=== PATIENT | female | born 1980 | race Hispanic/Latino ===

== ENCOUNTER 2019-02-26 01:29 | Emergency (ER) | payer BC ==
[~2019-02-26] VITALS: Ht 157.5 cm; Wt 140.6 kg
[~2019-02-26 01:29] MED LIST: ATIVAN1 MG PO; CELEXA40 MG PO; CLONAZEPAM1 MG PO; LEVOFLOXACIN500 MG PO; [UNRECOGNIZED DRUG - OTHER]
--- OUTSIDE RECORDS SUMMARY | 2019-02-26 01:33 | XMS REPORT | Clinical Summary ---
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 Last Filed Vital Signs Not on file Plan of Treatment Not on file Results Not on fileafter 02/25/2018
--- OUTSIDE RECORDS SUMMARY | 2019-02-26 01:33 | XMS REPORT ---
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 Allergies, Adverse Reactions, Alerts This patient has no known allergies or adverse reactions. Medications This patient has no known medications. Results Test Description Test Time Test Comments Text Results Atomic Results Result Comments CT CHEST W [place] [address] Patient Name: DYLLAN KLEIN MR #: [id number] : 1980 Age/Sex: 37/F Req #: [id number] [facility] Physician: LEYDA MCCOY MD Ordered by: NAVJOT RANGEL MD Report #: [id number] Location: MED/SURG Room/Bed: [facility] Procedure: [id number] CT/CT CHEST W Exam Date: 07/11/17 Exam Time: 1640 REPORT STATUS: Signed EXAM: CT Chest, Abdomen and Pelvis WITH contrast INDICATION: Right upper lobe lesion. Infiltrate. Pain. COMPARISON: CT abdomen dated 03/03/2017. TECHNIQUE: Chest, abdomen and pelvis were scanned utilizing a multidetector helical scanner from the lung apex to the pubic symphysis before and after administration of IV contrast. Coronal and sagittal reformations were obtained. Routine protocol was performed. Scan was performed when during portal venous phase. IV CONTRAST: 100 cc Isovue 370. ORAL CONTRAST: Water RADIATION DOSE: Total DLP: 1012.08 mGy*cm Estimated effective dose: (DLP x 0.015 x size factor) mSv COMPLICATIONS: None FINDINGS: LINES and TUBES: None. Gastric lap band appears in adequate position. Connecting tubing and subcutaneous port. Intact. LUNGS AND AIRWAYS: Irregular patchy consolidation with air bronchograms in the right upper lobe measuring 3.5 cm in maximal dimension on image 101. Irregular patchy consolidation with air bronchograms in the right upper lobe laterally measures 2.2 cm on coronal image 115. Patchy consolidation in the right apex measure 3.2 cm on coronal image 118. Irregular patchy consolidation in the super segment of the right lower lobe. 5 mm calcified nodule in the right lower lobe on coronal image 89. Bilateral dependent atelectasis. PLEURA: The pleural spaces are clear. HEART AND MEDIASTINUM: The thyroid gland is normal. Mild mediastinal lipomatosis. No mediastinal, hilar or axillary lymphadenopathy. The heart is normal in size.. There is no pericardial effusion. HEPATOBILIARY: Hepatomegaly. Diffuse hepatic steatosis. No focal hepatic lesions. No biliary ductal dilation. GALLBLADDER: Surgically absent. SPLEEN: The spleen is enlarged measuring 15.0 cm in craniocaudal dimension. PANCREAS: No focal masses or ductal dilatation. ADRENALS: No adrenal nodules KIDNEYS/URETERS: Kidneys enhance symmetrically. No hydronephrosis. No cystic or solid mass lesions. No stones. GI TRACT: No abnormal distention, wall thickening, or evidence of bowel obstruction. Appendix is normal. PELVIC OR ROSITA/BLADDER: 4.5 cm oval low-attenuation lesion in the left adnexa previously 4.1 cm possibly a paraovarian cyst. Mildly prominent external iliac lymph nodes the largest on the left measuring 1.1 cm in short axis, nonspecific. LYMPH NODES: No lymphadenopathy. VESSELS: Unremarkable. PERITONEUM / RETROPERITONEUM: No free air or fluid. BONES: Unremarkable. SOFT TISSUES: Unremarkable. IMPRESSION: 1. Multifocal right upper lobe patchy consolidation with air bronchograms suggestive of infectious etiology/pneumonia in the proper and lateral views chest x-ray in 6-8 weeks after treatment to document resolution. 1. 5 mm noncalcified nodule in the right lower lobe is nonspecific. History of chronic smoking, consider follow-up CT chest nodule protocol in 6 months. Clinical setting. Recommend follow-up chest PA. 2. Hepatomegaly and hepatic steatosis. 3. Splenomegaly. Signed by: Dr. Rigo Marmolejo M.D. on 07/11/2017 5:59 PM Dictated By: MIKE MARMOLEJO MD, MD 58 Transcribed By: AGNES on 07/11/171758 COPY TO: NAVJOT RANGEL MD CT ABDOMEN/PELVIS W [place] [address] Patient Name: DYLLAN KLEIN MR #: [id number] : 1980 Age/Sex: 37/F Req #: [id number] Adm Physician: LEYDA MCCOY MD Ordered by: SHIRAZ ANSARI MD Report #: [id number] Location: [place] [address] Room/Bed: [facility] Procedure: [id number] CT/CT ABDOMEN/PELVIS W Exam Date: 07/11/17 Exam Time: 1640 REPORT STATUS: Signed EXAM: CT Chest, Abdomen and Pelvis WITH contrast INDICATION: Right upper lobe lesion. Infiltrate. Pain. COMPARISON: CT abdomen dated 03/03/2017. TECHNIQUE: Chest, abdomen and pelvis were scanned utilizing a multidetector helical scanner from the lung apex to the pubic symphysis before and after administration of IV contrast. Coronal and sagittal reformations were obtained. Routine protocol was performed. Scan was performed when during portal venous phase. IV CONTRAST: 100 cc Isovue 370. ORAL CONTRAST: Water RADIATION DOSE: Total DLP: 1012.08 mGy*cm Estimated effective dose: (DLP x 0.015 x size factor) mSv COMPLICATIONS: None FINDINGS: LINES and TUBES: None. Gastric lap band appears in adequate position. Connecting tubing and subcutaneous port. Intact. LUNGS AND AIRWAYS: Irregular patchy consolidation with air bronchograms in the right upper lobe measuring 3.5 cm in maximal dimension on image 101. Irregular patchy consolidation with air bronchograms in the right upper lobe laterally measures 2.2 cm on coronal image 115. Patchy consolidation in the right apex measure 3.2 cm on coronal image 118. Irregular patchy consolidation in the super segment of the right lower lobe. 5 mm calcified nodule in the right lower lobe on coronal image 89. Bilateral dependent atelectasis. PLEURA: The pleural spaces are clear. HEART AND MEDIASTINUM: The thyroid gland is normal. Mild mediastinal lipomatosis. No mediastinal, hilar or axillary lymphadenopathy. The heart is normal in size.. There is no pericardial effusion. HEPATOBILIARY: Hepatomegaly. Diffuse hepatic steatosis. No focal hepatic lesions. No biliary ductal dilation. GALLBLADDER: Surgically absent. SPLEEN: The spleen is enlarged measuring 15.0 cm in craniocaudal dimension. PANCREAS: No focal masses or ductal dilatation. ADRENALS: No adrenal nodules KIDNEYS/URETERS: Kidneys enhance symmetrically. No hydronephrosis. No cystic or solid mass lesions. No stones. GI TRACT: No abnormal distention, wall thickening, or evidence of bowel obstruction. Appendix is normal. P ELVIC ORGANS/BLADDER: 4.5 cm oval low-attenuation lesion in the left adnexa previously 4.1 cm possibly a paraovarian cyst. Mildly prominent external iliac lymph nodes the largest on the left measuring 1.1 cm in short axis, nonspecific. LYMPH NODES: No lymphadenopathy. VESSELS: Unremarkable. PERITONEUM / RETROPERITONEUM: No free air or fluid. BONES: Unremarkable. SOFT TISSUES: Unremarkable. IMPRESSION: 1. Multifocal right upper lobe patchy consolidation with air bronchograms suggestive of infectious etiology/pneumonia in the proper and lateral views chest x-ray in 6-8 weeks after treatment to document resolution. 1. 5 mm noncalcified nodule in the right lower lobe is nonspecific. History of chronic smoking, consider follow-up CT chest nodule protocol in 6 months. Clinical setting. Recommend follow-up chest PA. 2. Hepatomegaly and hepatic steatosis. 3. Splenomegaly. Signed by: Dr. Rigo Marmolejo M.D. on 07/11/2017 5:59 PM Dictated By: MIKE MARMOLEJO MD, MD 58 COPY TO: SHIRAZ ANSARI MD CHEST 2 VIEWS [place] [address] Patient Name: DYLLAN KLEIN MR #: [id number] : 1980 Age/Sex: 37/F Req #: [id number] Adm Physician: Ordered by: ORALIA LEGER MD Report #: [id number] Location: ER Room/Bed: Procedure: [id number] DX/CHEST 2 VIEWS Exam Date: 07/10/17 Exam Time: 1230 REPORT STATUS: Signed PROCEDURE: X-RAY CHEST, TWO VIEWS COMPARISON: None. INDICATIONS: PNEUMONIA, WHEEZING FINDINGS: Lungs are well-inflated. Patchy suprahilar/right upper lobe consolidation. No pleural effusion or pneumothorax. Cardiomediastinal contour and pulmonary vasculature are within normal limits. No acute osseous abnormality. Gastric band apparatus partially visualized. CONCLUSION: Right upper lobe/suprahilar airspace disease compatible with pneumonia. Followup chest radiograph in 6-8 weeks is suggested after treatment to document resolution. Dictated by: Jorge Rojas M.D. on 07/10/2017 at 12:57 Electronically approved by: Jorge Rojas M.D. on 07/10/2017 at 12:57 Dictated By: JORGE ROJAS MD [id number] Transcribed By: BRIGETTE on 07/10/17 1257 COPY TO: ORALIA LEGER MD
[2019-02-26] MEDS ORDERED: TETANUS/DIPHTHERIA TOX ADULT 0.5 ML SYR IM ONE (01:45)
--- NOTE | 2019-02-26 02:09 | Diagnostic Imaging Report ---
LEFT THUMB - 3 Images HISTORY: Status post knee right, eval for foreign body COMPARISON: None available. FINDINGS: Bones: No acute displaced fracture. No aggressive osseous lesion. Joints: Osseous alignment is within normal limits and the joint spaces are well-maintained. Soft tissues: No radiopaque foreign body. IMPRESSION: No acute radiographic abnormality. Signed by: Dr. Papa Schmidt D.O., M.M.M. on 02/26/2019 2:06 AM
[2019-02-26 03:44] VITALS: BP 117/67
== END 2019-02-26 03:55 | disposition home or self-care (01) ==
LOC: ER 01:29
DX: S60.372A Other superficial bite of left thumb, initial encounter (principal); W59.11XA Bitten by nonvenomous snake, initial encounter; Y92.008 Other place in unspecified non-institutional (private) residence as the place of occurrence of the external cause; F41.9 Anxiety disorder, unspecified; Z98.84 Bariatric surgery status
CPT/HCPCS: 90471; 90714; 99283

== ENCOUNTER 2019-12-03 03:43 | Inpatient (IN) | payer BC, OTHER ==
[~2019-12-03] VITALS: Ht 157.5 cm; Wt 134.3 kg
[2019-12-03] MEDS ORDERED: KETOROLAC TROMETHAMINE 30 MG/ML VIAL IV STA (04:44)
[2019-12-03] MEDS ORDERED: CEFEPIME HCL 2 GM VIAL IV SCH (04:45)
[2019-12-03] MEDS ORDERED: CIPROFLOXACIN 400 MG/D5W 200ML 200 ML IV ONE (04:48)
[2019-12-03] MEDS ORDERED: PIPER-TAZ 3.375 GM 50 ML ONE (04:48)
[2019-12-03] MEDS ORDERED: KETOROLAC TROMETHAMINE 30 MG/ML VIAL ONE (04:48)
[2019-12-03] MEDS ORDERED: CEFEPIME 1GM/NS 0.9% 50 ML 100 ML IV ONE (04:50)
[2019-12-03] MEDS: CIPROFLOXACIN 400 MG/D5W 200ML 200 ML IV SCH ×2 (05:05→17:04)
[2019-12-03] MEDS ORDERED: ONDANSETRON HCL INJ 2MG/ML 2ML 2 MG/ML VIAL IV STA (05:21)
[2019-12-03] MEDS ORDERED: MORPHINE SULFATE 2 MG/ML SYR 1ML IV STA (05:21)
[2019-12-03] MEDS ORDERED: MORPHINE SULFATE INJ 4 MG/ML INJ 1ML ONE ×2 (05:29→07:00)
--- NOTE | 2019-12-03 06:14 | Diagnostic Imaging Report ---
History:Right ear infection. Comparison studies:None Technique: Axial, coronal and sagittal images through the temporal bones. Dose modulation, iterative reconstruction, and/or weight based adjustment of the mA/kV was utilized to reduce the radiation dose to as low as reasonably achievable. Intravenous contrast: None Findings: Right: External auditory canal: Extensive soft tissue thickening effacing the right external auditory canal no osseous erosive changes. Tympanic membrane: Not well visualized. Middle ear and mastoid cavities: Near complete opacification. The Prussack's space is opacified, scutum is intact. Questionable focal dehiscence of medial aspect of tegmen tympani. Mastoid air cells: Partial opacification. Tegmen mastoideum is intact. Ossicles: The malleus, incus are grossly intact. Stapes is not well visualized. Cochlea, vestibule, internal acoustic canals: Grossly intact. Semicircular canals: Focal dehisence of superior semicircular canal (image 88, series 300). Endolymphatic ducts: Normal in size. No dilated. Petrous apices: Unremarkable, not aerated. Facial canals: Focal dehiscent of the facial canal in the tympanic segment (image 62, series 301) at the junction of the distal labyrinthine segment and proximal tympanic segment (in the region of the anterior genu). Left: External auditory canal: Clear and patent Tympanic membrane: Barely visualized and unremarkable. Middle ear and mastoid cavities: Clear. Mastoid air cells: Clear Ossicles: The malleus, incus and stapes are grossly intact. Cochlea, vestibule, internal acoustic canals: Grossly intact. Semicircular canals: Grossly intact. Not dehiscent. Endolymphatic ducts: Normal in size. No dilated. Petrous apices: Unremarkable, not aerated. Facial canals: No abnormalities in the labyrinthine, tympanic or mastoid segments of the facial nerve,. IMPRESSION: Right temporal bone: 1. Marked right otitis externa, otitis media and mastoiditis. 2. Questionable focal dehiscence of the medial aspect of the tegmen tympani. 3. 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 Left temporal bone: No abnormality. Signed by: Dr. Lila Duvall M.D. on 12/03/2019 6:10 AM
[2019-12-03] MEDS ORDERED: MORPHINE SULFATE INJ 4 MG/ML INJ 1ML IV STA (06:24)
[2019-12-03] MEDS ORDERED: SODIUM CHLORIDE FLUSH 10 ML SYR INJ PRN (07:00)
[2019-12-03] MEDS ORDERED: ONDANSETRON HCL INJ 2MG/ML 2ML 2 MG/ML VIAL IV PRN ×2 (07:00→11:00)
[2019-12-03 08:57] VITALS: BP 128/84
[2019-12-03] MEDS ORDERED: HUMULIN R100 UNIT/2 (08:57)
[2019-12-03] MEDS ORDERED: HUMULIN N100 UNITS/ SQ (08:57)
[2019-12-03] MEDS ORDERED: HUMULIN R100 UNIT/2 SQ (08:57)
[2019-12-03] MEDS ORDERED: BENADRYL25 M1 PO (08:59)
[2019-12-03 09:00] VITALS: BP 128/84
[2019-12-03 09:05] VITALS: BP 128/84
[2019-12-03] MEDS: HYDROMORPHONE 1MG/1ML INJ IV PRN ×4 (09:16→21:35)
[2019-12-03] MEDS: CLONAZEPAM 1 MG TAB PO PRN ×2 (09:50→15:45)
[2019-12-03] MEDS: INSULIN REGULAR, HUMAN 100 UNIT/1 ML 3ML VIAL SQ SCH ×6 (09:50→16:26)
[2019-12-03] MEDS: NPH, HUMAN INSULIN ISOPHANE 100 UNIT/1 ML 3ML VIAL SQ SCH ×2 (09:50→21:06)
[2019-12-03] MEDS ORDERED: HYDRALAZINE HCL 20 MG/ML VIAL IV PRN (11:00)
[2019-12-03] MEDS ORDERED: MELATONIN 5 MG TABLET PO PRN (11:00)
[2019-12-03] MEDS ORDERED: ACETAMINOPHEN 325 MG TAB PO PRN (11:00)
[2019-12-03 11:05] VITALS: BP 151/76
[2019-12-03] MEDS: ONDANSETRON HCL INJ 2MG/ML 2ML 2 MG/ML VIAL IV PRN ×2 (15:00→18:27)
[2019-12-03 15:12] VITALS: BP 145/82
[2019-12-03] MEDS ORDERED: SODIUM CHLORIDE 0.9% 250ML 250 ML ONE (15:44)
[2019-12-03 20:00] VITALS: BP 133/88
[2019-12-03] MEDS: CITALOPRAM HYDROBROMIDE 20 MG TAB PO SCH (21:00)
--- NOTE | 2019-12-03 21:37 | Consultation ---
DATE OF CONSULTATION: Hospital Consultation HISTORY OF PRESENT ILLNESS: I was kindly asked to see this 39-year-old woman for evaluation of right-sided otitis externa. She presents with a 6-day history of progressive right-sided ear pain. She was treated by her oncologist with amoxicillin with no response to therapy. Prior to this episode, she has had no otologic history. However, she does use Q-Tips to clean her ear. She has a history of diabetes, which was out of control on presentation. She has noticed decreased hearing in the right ear. She reports pain which begins in the right temporal region down to the angle of the mandible on the right side. Her admission CT scan was reviewed and shows edema of the external auditory canal and extension into the middle ear and mastoid air cells. There is no bony erosion. 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 The patient has not received medications for her leukemia since 2018 and she took immunosuppressive medications for approximately 9 months after her bone marrow transplant. Her past medical history and past surgical is otherwise noncontributory. PHYSICAL EXAMINATION: The left pinna, left external auditory canal, and left tympanic membrane are normal. The right pinna has erythema within the conchal bowl of the pinna. There is edema and mucopus in the external auditory canal. The tympanic membrane cannot be visualized. The ear canal is more than 50% swollen shut from the edema. There is no postauricular pain, swelling, erythema, or tenderness. There is no palpable cervical adenopathy. Intranasal examination is unremarkable. Oral cavity examination shows mild candidiasis on the dorsum of the tongue. The posterior pharyngeal wall could not be seen and Ot[place]ick was inserted in the right external auditory canal. ASSESSMENT: 1. Right otitis externa with secondary mastoiditis. 2. Status post placement of Otowick in the right external auditory canal. PLAN: Addition of Ciprodex b.i.d. to the right ear. Thank you very much for this consultation. MD JAMIE Diaz/MODL /[id number]
[2019-12-04] VITALS (8 sets, daily range): BP systolic 115–128; BP diastolic 68–87
[2019-12-04] MEDS: HYDROMORPHONE 1MG/1ML INJ IV PRN ×3 (03:07→09:23)
[2019-12-04] MEDS: ONDANSETRON HCL INJ 2MG/ML 2ML 2 MG/ML VIAL IV PRN ×5 (03:07→21:59)
[2019-12-04] MEDS: CIPROFLOXACIN 400 MG/D5W 200ML 200 ML IV SCH ×2 (04:19→17:14)
[2019-12-04 05:49] LABS: BASOPHILS % 0.5 % (0.0-1.0); EOSINOPHILS # (AUTO) 0.3 (0.0-0.4); EOSINOPHILS % 3.6 % (0.0-6.0); HEMATOCRIT 37.4 % (34.2-44.1); HEMOGLOBIN 12.9 g/dL (12.0-16.0); LYMPHOCYTES # (AUTO) 1.2 (1.0-3.2); LYMPHOCYTES % 15.1 % (18.0-39.1); MEAN CORPUSCULAR HEMOGLOBIN 32.5 pg (28-32); MEAN CORPUSCULAR HGB CONC 34.5 g/dL (31-35); MEAN CORPUSCULAR VOLUME 94.2 fL (81-99); MONOCYTES # (AUTO) 0.5 (0.2-0.8); MONOCYTES % 5.9 % (4.4-11.3); NEUTROPHILS % 74.4 % (38.7-80.0); PLATELET COUNT 162 x10e3/uL (140-360); RED BLOOD COUNT 3.97 x10e6/uL (3.6-5.1); RED CELL DISTRIBUTION WIDTH 13.1 % (11.7-14.4)
[2019-12-04 06:12] LABS: ALBUMIN 3.4 g/dL (3.5-5.0); ALBUMIN/GLOBULIN RATIO 0.9 (0.8-2.0); CALCIUM 9.5 mg/dL (8.4-10.2); CREATININE, SERUM 1.04 mg/dL (0.57-1.11); MAGNESIUM 1.7 MG/DL (1.3-2.1)
[2019-12-04 06:32] LABS: THYROID STIMULATING HORMONE 2.735 uIU/mL (0.350-4.940)
[2019-12-04] MEDS: NPH, HUMAN INSULIN ISOPHANE 100 UNIT/1 ML 3ML VIAL SQ SCH ×2 (07:48→20:53)
[2019-12-04] MEDS: INSULIN REGULAR, HUMAN 100 UNIT/1 ML 3ML VIAL SQ SCH ×6 (07:49→17:14)
[2019-12-04] MEDS: CIPROFLOXACIN-DEXAMETHASONE (OTIC) 7.5 ML BOTTLE OT SCH ×2 (08:05→17:14)
[2019-12-04] MEDS: CLONAZEPAM 1 MG TAB PO PRN ×2 (08:05→20:29)
[2019-12-04] MEDS: MORPHINE SULFATE INJ 4 MG/ML INJ 1ML IV PRN ×3 (13:30→21:59)
[2019-12-04] MEDS: CITALOPRAM HYDROBROMIDE 20 MG TAB PO SCH (20:24)
[2019-12-05 00:13] VITALS: BP 121/64
[2019-12-05] MEDS: MORPHINE SULFATE INJ 4 MG/ML INJ 1ML IV PRN ×4 (03:25→16:00)
[2019-12-05] MEDS: ONDANSETRON HCL INJ 2MG/ML 2ML 2 MG/ML VIAL IV PRN ×2 (03:25→08:13)
[2019-12-05] MEDS: CIPROFLOXACIN 400 MG/D5W 200ML 200 ML IV SCH (03:48)
[2019-12-05 04:44] VITALS: BP 116/64
[2019-12-05 06:30] LABS: BASOPHILS # (AUTO) 0.1 (0.0-0.1); BASOPHILS % 0.7 % (0.0-1.0); EOSINOPHILS # (AUTO) 0.3 (0.0-0.4); EOSINOPHILS % 4.6 % (0.0-6.0); HEMATOCRIT 36.8 % (34.2-44.1); HEMOGLOBIN 12.2 g/dL (12.0-16.0); LYMPHOCYTES # (AUTO) 1.1 (1.0-3.2); MEAN CORPUSCULAR HEMOGLOBIN 31.6 pg (28-32); MEAN CORPUSCULAR HGB CONC 33.2 g/dL (31-35); MEAN CORPUSCULAR VOLUME 95.3 fL (81-99); MONOCYTES # (AUTO) 0.4 (0.2-0.8); NEUTROPHILS # (AUTO) 5.1 (2.1-6.9); PLATELET COUNT 164 x10e3/uL (140-360); RED BLOOD COUNT 3.86 x10e6/uL (3.6-5.1); RED CELL DISTRIBUTION WIDTH 13.2 % (11.7-14.4)
[2019-12-05 06:49] LABS: ANION GAP 9.1 mmol/L (8-16); BLOOD UREA NITROGEN 9 mg/dL (7-26); BUN/CREATININE RATIO 9 (6-25); CALCIUM 9.5 mg/dL (8.4-10.2); CARBON DIOXIDE 32 mmol/L (22-29); CHLORIDE 102 mmol/L (98-107); CREATININE, SERUM 0.96 mg/dL (0.57-1.11); EST GLOMERULAR FILTRATION RATE > 60 ML/MIN (60-); GLUCOSE 165 mg/dL (74-118); MAGNESIUM 1.8 MG/DL (1.3-2.1); POTASSIUM 4.1 mmol/L (3.5-5.1); SODIUM 139 mmol/L (136-145)
[2019-12-05] MEDS: INSULIN REGULAR, HUMAN 100 UNIT/1 ML 3ML VIAL SQ SCH ×4 (08:20→12:53)
[2019-12-05] MEDS: NPH, HUMAN INSULIN ISOPHANE 100 UNIT/1 ML 3ML VIAL SQ SCH (08:21)
[2019-12-05] MEDS: CIPROFLOXACIN-DEXAMETHASONE (OTIC) 7.5 ML BOTTLE OT SCH (08:22)
[2019-12-05 08:28] VITALS: BP 111/53
[2019-12-05 10:10] VITALS: BP 111/53
[2019-12-05] MEDS: CLONAZEPAM 1 MG TAB PO PRN (10:28)
[2019-12-05] MEDS ORDERED: TYLENOL WITH C1 EACH PO (10:42)
[2019-12-05] MEDS ORDERED: CIPRODEX OTIC7.5 ML OT (10:42)
[2019-12-05] MEDS ORDERED: CIPRO500 MG PO (10:42)
[2019-12-05 12:30] VITALS: BP 141/87
[2019-12-05 12:31] VITALS: BP 110/62
--- NOTE | 2019-12-06 00:50 | Discharge Summary ---
ADMISSION DIAGNOSES: Right ear otitis media externa and mastoiditis. DISCHARGE DIAGNOSES: Right ear otitis media externa and mastoiditis. HISTORY: Type 2 diabetes, anxiety, depression, and PTSD. SURGICAL HISTORY: None. FAMILY HISTORY: None. SOCIAL HISTORY: Noncontributory. HOSPITAL COURSE: A 39-year-old female admits with complaints of right ear pain and fullness for a week. She went to her oncologist, who treated her in the past for AML, who told her to come to the ER. On admission, she had a CT of the face that showed marked right otitis externa, otitis media, and mastoiditis. ENT was consulted. The patient was started on Cipro IV. Per ENT recommendation, the patient was also given Ciprodex b.i.d. drops and an ear wick was placed. Wound culture came back positive for Pseudomonas fluorescens/putida, which was susceptible to Cipro. She will discharge home on a week of Cipro drops and Cipro p.o. She will follow up with ENT at the end of that week. The patient understands discharge instructions and agrees to plan. Dictated by Marlena Barnett NP MD AMRITA Camacho/HERNAN /[id number]
== END 2019-12-05 16:15 | disposition home or self-care (01) | DRG 155 ==
LOC: FSED 03:43 → ERHOLD 06:53 → MED/SURG3 08:19
PROVIDERS: ADMIT Internal Medicine; ATTEND Internal Medicine
DX: H60.21 Malignant otitis externa, right ear (principal); H70.001 Acute mastoiditis without complications, right ear; Z68.43 Body mass index [BMI] 50.0-59.9, adult; B37.0 Candidal stomatitis; Z85.6 Personal history of leukemia; G47.33 Obstructive sleep apnea (adult) (pediatric); F41.9 Anxiety disorder, unspecified; Z88.8 Allergy status to other drugs, medicaments and biological substances; Z91.048 Other nonmedicinal substance allergy status; Z79.4 Long term (current) use of insulin; H60.11 Cellulitis of right external ear; Z83.3 Family history of diabetes mellitus; Z80.9 Family history of malignant neoplasm, unspecified; Z90.49 Acquired absence of other specified parts of digestive tract; L91.0 Hypertrophic scar; E66.01 Morbid (severe) obesity due to excess calories; F32.9 Major depressive disorder, single episode, unspecified; H66.91 Otitis media, unspecified, right ear; B96.5 Pseudomonas (aeruginosa) (mallei) (pseudomallei) as the cause of diseases classified elsewhere; F43.10 Post-traumatic stress disorder, unspecified
CPT/HCPCS: 36415; 70480; 80048; 80053; 81025; 82948; 83036; 83735; 84443; 85025; 87071; 87186; 87205; 94660; 96376; 99284; J0692; J1170; J1817; J1885; J2270; J2405; J2543; J7050

== ENCOUNTER 2020-04-18 06:22 | Emergency (ER) | payer MEDICARE ==
[~2020-04-18] VITALS: Ht 157.5 cm; Wt 134.3 kg
[~2020-04-18 06:22] MED LIST changes: +BENADRYL25 M1 PO; +CIPRO500 MG PO; +CIPRODEX OTIC7.5 ML OT; +HUMULIN N100 UNITS/ SQ; +HUMULIN R100 UNIT/2; +HUMULIN R100 UNIT/2 SQ; +TYLENOL WITH C1 EACH PO
--- OUTSIDE RECORDS SUMMARY | 2020-04-18 06:55 | XMS REPORT | Clinical Summary ---
Author Author Augusta Yarsani Organization Augusta Yarsani Address Unknown Phone Unavailable Care Team Providers Care Stock Chaser Name Role Phone Amando Monsivais MD PCP Allergies Comments Active Allergy Reactions Severity Noted Date Blisters Adhesive Tape-Silicones Dermatitis Medium 2016 Chlorhexidine Rash Low 03/29/2018 Tachycardia Pseudoephedrine Hcl Palpitations High 07/24/2017 Medications End Date Status Medication Sig Dispensed Refills Start Date Active clonAZEPAM (KlonoPIN) 1 Take 1 mg by 0 MG tablet mouth 2 (two) times a day. Active multivitamin (THERAGRAN) Take 1 tablet 0 tablet by mouth daily. Active lancets (ONETOUCH DELICA 1 Device 4 400 each 3 0 LANCETS) 30 gauge misc (four) times 8 a day. Active citalopram (CeleXA) 40 MG Take 40 mg by 0 tablet mouth daily. Active flash glucose scanning 1 Device 1 each 1 reader misc daily. 9 Active flash glucose sensor kit 1 Device 6 kit 3 0 every 14 9 (fourteen) days. Active QUEtiapine (SEROquel) 100 Take 1 tablet 2 3/201 MG tablet by mouth 9 nightly. Active valACYclovir (VALTREX) Take 1 tablet 90 tablet 3 1 500 MG tabletIndications: (500 mg 9 Status post allogeneic total) by bone marrow transplant mouth daily. (HCC) 09/06/2020 Active sulfamethoxazole-trimetho Take 1 tablet 36 tablet 1 prim (BACTRIM DS) 800-160 by mouth 3 0 mg per tablet (three) times a week for 180 days. Active cholecalciferol, vitamin Take 1 tablet 0 D3, (Vitamin D3) 125 mcg by mouth (5,000 unit) tablet daily. Active progesterone (PROMETRIUM) Take 200 mg 0 100 MG capsule by mouth daily. Active atorvastatin (LIPITOR) 40 Take 40 mg by 0 mg tablet mouth daily. Active insulin Inject 60 0 glargine-lixisenatide Units under (Soliqua 100/33) 100 the skin unit-33 mcg/mL insulin daily. pen 04/18/2019 voriconazole (VFEND) 200 Take 1 tablet 60 tablet 1 MG tablet (200 mg 8 total) by mouth every 12 (twelve) hours. 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 05/22/2019 Discontinued (Therapy comple kevan) linagliptin (TRADJENTA) 5 Take 1 tablet 90 tablet 3 mg tablet (5 mg total) 8 by mouth daily. 05/22/2019 Discontinued (Therapy comple kevan) dextran 70-hypromellose Administer 1 0 (ARTIFICIAL TEARS) drop to both 8 0.1-0.3 % drops eyes as needed (dry eyes). 05/22/2019 Discontinued (Therapy comple kevan) insulin lispro (HumaLOG) Inject 6 20 mL 1 1 100 unit/mL injection Units under 8 the skin 3 (three) times a day before meals. 05/22/2019 Discontinued (Therapy comple kevan) insulin NPH (HumuLIN-N) Inject 15 20 mL 1 100 unit/mL injection Units under 8 the skin 2 (two) times a day before meals. 03/24/2020 Discontinued (Therapy comple kevan) promethazine (PHENERGAN) Take 1 tablet 60 tablet 1 25 MG tablet (25 mg total) 8 by mouth every 4 (four) hours as needed for nausea or vomiting. 05/22/2019 Discontinued (Therapy comple kevan) pantoprazole (PROTONIX) TAKE 1 TABLET 60 tablet 0 40 MG EC tablet BY MOUTH 9 TWICE A DAY 05/22/2019 Discontinued (Therapy comple kevan) eltrombopag (PROMACTA) 50 Take 2 60 tablet 11 MG tablet tablets (100 9 mg total) by mouth daily. Administer on an empty stomach, 1 hour before or 2 hours after a meal. 04/29/2019 Discontinued (Reorder) VITAMIN D2 50,000 unit TAKE ONE 4 capsule 3 capsule CAPSULE BY 9 MOUTH ONE TIME PER WEEK 05/22/2019 Discontinued (Therapy comple kevan) MAGNESIUM, AMINO ACID TAKE 1 TABLET 150 tablet 3 CHELATE, 133 mg tablet BY MOUTH 5 9 (FIVE) TIMES A DAY. 05/22/2019 Discontinued (Reorder) valACYclovir (VALTREX) Take 1 tablet 90 tablet 3 0 500 MG tablet (500 mg 9 total) by mouth daily. 03/24/2020 Discontinued (Therapy comple kevan) ondansetron (ZOFRAN) 8 MG Take 1 tablet 28 tablet 3 tabletIndications: Acute (8 mg total) 9 myeloid leukemia in by mouth remission (HCC) every 8 (eight) hours as needed for nausea or vomiting. 03/10/2020 Discontinued (Dose adjustmen t) ergocalciferol (VITAMIN TAKE ONE 4 capsule 3 D2) 50,000 unit capsule CAPSULE BY 9 MOUTH ONE TIME PER WEEK 03/10/2020 Discontinued (Alternate ther apy) insulin NPH (HumuLIN-N) Inject 40 0 100 unit/mL injection Units under the skin 2 (two) times a day before meals. 09/01/2019 Discontinued (Alternate ther apy) insulin lispro (HumaLOG) Inject under 0 100 unit/mL injection the skin 3 (three) times a day before meals. Per sliding scale 08/08/2019 levoFLOXacin (LEVAQUIN) Take 1 tablet 7 tablet 0 500 MG tablet (500 mg 9 total) by mouth daily for 10 days. 09/01/2019 Discontinued (Reorder) insulin regular (HumuLIN Inject 15 0 R Regular U-100 Insuln) Units under 100 unit/mL injection the skin 3 (three) times a day before meals. SS:<150=0 units, 150-180=4 units, 181-200=6 units, 201-250=8 units, 251-300=10 units, 301-350=12 units, >351=14 units 03/10/2020 Discontinued (Alternate ther apy) insulin regular (HumuLIN Inject 15 20 mL 3 0 R Regular U-100 Insuln) Units under 0 100 unit/mL the skin 3 injectionIndications: (three) times Controlled type 2 a day before diabetes mellitus without meals. complication, without SS:<150=0 long-term current use of units, insulin (HCC) 150-180=4 units, 181-200=6 units, 201-250=8 units, 251-300=10 units, 301-350=12 units, >351=14 units 01/08/2020 Discontinued (Alternate ther apy) HUMALOG U-100 INSULIN 100 INJECT 15 10 mL 3 unit/mL injection UNITS UNDER 0 THE SKIN 3 (THREE) TIMES A DAY BEFORE MEALS 12/06/2019 amoxicillin-pot Take 1 tablet 20 tablet 0 11/26/19 2 clavulanate (Augmentin) by mouth 2 0 875-125 mg per (two) times a tabletIndications: Acute day for 10 serous otitis media, days. recurrence not specified, unspecified laterality Active Problems Problem Noted Date Need for hepatitis A vaccination 03/10/2020 Dysuria 07/28/2019 Iron overload due to repeated red blood cell transfus ions 07/28/2019 Acquired hypothyroidism 06/19/2019 Need for hepatitis A immunization 06/19/2019 Need for meningococcal vaccination 06/19/2019 Need for pneumococcal vaccination 05/22/2019 Need for polio vaccination 05/22/2019 Need for Tdap vaccination 04/03/2019 Need for hepatitis B vaccination 04/03/2019 Anxiety 04/03/2019 Need for Hib vaccination 04/03/2019 Exposure to hepatitis C 03/13/2019 Pre-procedure lab exam 10/09/2018 AML (acute myeloid leukemia) in remission 10/01/2018 Anxiety about health 10/01/2018 Pain at surgical site 10/01/2018 Diarrhea of presumed infectious origin 10/01/2018 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 Solumedrol 125mg x1, IVIG 1gm/kg x1, Prednisone 60mg daily. 07/15/18 platelets peaked at 73k, now 36 k. 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 05/20/18 MRI brain and face Negative 05/21/18 LP WBC 49, 90% lymphs, 6 mono ,2 plasma cells Glucose 94, Protein 80 Cryptoantigen negative. Flow negat harsha. BK PCR CMV PCR HSV PCR negative VZV PCR negative Enteroviru s negative PCR EBV PCR negative SERUM Toxo PCR negative. VDRL Fungal , bacterial Hypomagnesemia 04/22/2018 Hypovolemia 04/19/2018 Status post allogeneic bone marrow transplant 2017 Overview: Admitted: 03/26/18 Regimen: Bu/Cy/Cam Transplant: ( allo-MUD): 04/03/18. (rec eived 6.444VR67/kg) Engraftment date: 04/18/18 (Third consecu tive days of ANC> 500). Complications: Neutropenic fever: cultu res positive for streptococcus mitis ( will complete Roce[facility] x[facility]). Repeat cultures negative. Chest Xray neg. UA neg. Grade III mucos itis: resolved (Sizing Sprayer morphin). Grade II Nausea. resolving . GVHD: None CMV: negative PCP prophylaxis: Bactrim... Mon/Sun/Fri . CVC: Left subclavian tripple lumen (03/14 04/30 ). Discharge: 04/19/18 1. 05/02/18 PB STR 100% donor. 2. 07/03/18 BM 30-40% cellular, AML in remission. Flow negative Cytogenetics FISH AML Inv 16 negative. FISH MDS normal STR 100% donor 3. 2 PB STR 100% donor. 4. 2 BM 60% cellular, AML in felipe ssion Flow negative for AML. Cytogenetics 46 XYFISH AML normal FISH MDS normal BFG500% donor. 5. 3 CSF Protein 32, Glucose 68 , WBC 2, Flow negative. OP 24cm H2O, Cytology negative. 6. 04/03/19 BM 60% cellular, no AML Carlos w negative. Cytogenetics 46 XY FISH Inv16 and FISH MDS normal STR 100% don or. 01/08/2020 PB STR 96% mononuclear 100% g ranulocyte donor 03/24/2020 BM 50% cellular, no AML. Carlos w negative. Cytogenetics 46 XY FISH Inv 16 normal. FISH MDS normal STR 100 % donor. Infection due to Streptococcus mitis group 8 Abnormal stress test 02/15/2018 Overview: Added automatically from request for lorna wallace [id number] Acute cystitis without hematuria 01/02/2018 H/O total hysterectomy 12/27/2017 Overview: 11/16/17 Complex atypical endometrial hyperplasia 11/16/2017 Controlled type 2 diabetes mellitus without complicat ion, without long-term 10/21/2017 current use of insulin Complex endometrial hyperplasia 10/16/2017 Vitamin D deficiency 10/06/2017 FRANCI (acute kidney injury) 09/09/2017 Secondary diabetes mellitus 09/04/2017 Dyslipidemia 09/04/2017 Morbid obesity 08/01/2017 Thrombocytopenia 08/01/2017 AML (acute myeloblastic leukemia) 07/24/2017 Overview: 1. 07/2017 elevated WBC, severe anemia and thrombocytopenia 2. 07/25/17 BM 95% cellular, 33% blasts AMML with eosinophils flow:CD45, CD33, CD13, CD15, HLA-DR, CD38 (dim), C D14 (subset are negative), CD11b(subset are negative), CD11c, CD36, CD64, HLA-D R, CD123 (variable), CD34 (small subset), MPO. Cytogenetics inv1 6 with del 7q. 3. 07/25/17 WBC 66k. Hydrea and Cytara bine 1gm IV 4. 07/27/17 3+7 Megan 12/mgm2 + cytarabin e 100mg/m2 5. 08/31/17 BM 80-90% cellular, AML in r emission. Flow negative Cytogenetics FISH only, negative for -7 and inv16. 6. 08/31/17 HiDAC 3gm/m2 x 6 doses. 7. 2 HiDAC 3gm/m2 x6 doses. 8. 10/15/17 bacteremia, due to Strep sali v. 9. 11/16/17 Hysterectomy. 10 12/27/17 BM 30-70% cellular, AML in r emission. Flow negative Cytogenetics 46XX FISH INV 16 negative and monosomy 7 negative. NGS no mutations. 11. 01/15/18 HiDAC 1.5gm/m2 x 6 doses. Uterus disorder 08/13/2015 Overview: hyperplasia of uterus. Now with atypia 2017 Seizure disorder, focal motor 02/11/2010 Disease of thyroid gland 08/13/2009 Overview: Began replacement therapy Asthma 08/13/2009 Overview: 1. 2010, recurrent brochitis Seizures 08/13/2008 Overview: 1. Migraine variant. MRI negative 2008 . Alopecia areata 07/11/2007 Sleep apnea, obstructive 08/13/1999 Overview: CPAP, since 1999. Encounters Care Team Description Date Type Specialty Zack Arriaga MD Scholoff, Audrey C., NP Acute myeloid leukemia not having achiev ed remission (HCC) (Primary Dx); Status post allogeneic bone marrow transplant (HCC); 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ons; Need for hepatitis A vaccination; Need for pneumococcal vaccination 03/24/2020 Hospital Hematology and Onco logy Encounter Savannah Crawford NP 03/24/2020 Refill Hematology and Onco logy 03/24/2020 Travel Zack Arriaga MD Scholoff, Audrey C., NP Acute myeloid leukemia not having achiev ed remission (HCC) (Primary Dx); Status post allogeneic bone marrow transplant (HCC) 03/10/2020 Hospital Hematology and Onco logy Encounter 03/10/2020 Travel Zack Arriaga MD Scholoff, Audrey C., NP No Show 02/03/2020 Hospital Hematology and Onco logy Encounter Savannah Crawford NP 01/14/2020 Refill Hematology and Onco logy Zack Arriaga MD Scholoff, Audrey C., NP Acute myeloid leukemia not having achiev ed remission (HCC) (Primary Dx); Status post allogeneic bone marrow transplant (HCC); 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ons; Need for polio vaccination; Need for pneumococcal vaccination; Need for hepatitis B vaccination; AML (acute myeloid leukemia) in remission (HCC) 01/08/2020 Hospital Hematology and Onco logy Encounter 01/08/2020 Travel Haylee Stapleton MA 01/02/2020 Telephone Endocrinology Savannah Crawford NP 12/23/2019 Refill Hematology and Onco logy Savannah Crawford NP Acute serous otitis media, recurrence no t specified, unspecified laterality (Primary Dx) 11/26/2019 Refill Hematology and Onco logy Savannah Crawford NP 11/26/2019 Orders Only Hematology and Onco logSavannah Rodgers, HIRAL 10/27/2019 Refill Hematology and Onco logy Haylee Stapleton MA Uncontrolled type 2 diabetes mellitus wi th hyperglycemia (HCC) (Primary Dx); Hyperlipidemia associated with type 2 diabetes mellitus (HCC); Vitamin D deficiency 10/02/2019 Orders Only Endocrinology Zack Arriaga MD 09/12/2019 Refill Hematology and Onco logy Savannah Crawford, HIRAL 09/09/2019 Refill Hematology and Onco logy Zack Arriaga MD Scholoff, Audrey C., HIRAL Acute myeloid leukemia in remission (HCC ) (Primary Dx); Need for polio vaccination; Status post allogeneic bone marrow transplant (HCC); 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ons; Acute myeloid leukemia not having achieved remission (HCC); Need for Tdap vaccination; Need for pneumococcal vaccination; Controlled type 2 diabetes mellitus without complication, without long-term current use of insulin (HCC) 09/01/2019 [facility] Hematology and Onco logy Encounter Savannah Crawford NP 07/29/2019 Refill Hematology and Onco logy Zack Arriaga MD Scholoff, Audrey C., HIRAL Acute myeloid leukemia in remission (HCC ) (Primary Dx); Acute myeloid leukemia not having achieved remission (HCC); Status post allogeneic bone marrow transplant (HCC); Acquired hypothyroidism; Need for hepatitis A immunization; Need for meningococcal vaccination; Need for Hib vaccination; Dysuria; 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ons 07/28/2019 [facility] Hematology and Onco logy Encounter aZck Arriaga MD Scholoff, Audrey C., HIRAL Canceled (Department/Provider) 07/24/2019 [facility] Hematology and Onco logy Encounter Zack Arriaga MD Scholoff, Audrey C., HIRAL Acute myeloid leukemia not having achiev ed remission (HCC) (Primary Dx); Status post allogeneic bone marrow transplant (HCC); Need for Tdap vaccination; Need for polio vaccination; Need for pneumococcal vaccination; Insulin dependent diabetes mellitus (HCC) 06/19/2019 [facility] Hematology and Onco logy Encounter Ester Martinez NP 06/19/2019 Refill Endocrinology Zack Arriaga MD Scholoff, Audrey C., HIRAL Acute myeloid leukemia not having achiev ed remission (HCC) (Primary Dx); Status post allogeneic bone marrow transplant (HCC); Need for hepatitis B vaccination; Need for Hib vaccination; Need for vaccination for H flu type B 05/22/2019 Hospital Hematology and Onco logy Encounter Ryann Barlow MD Diarrhea 05/09/2019 Telephone Transplant Zack Arriaga MD Scholoff, Audrey C., NP Canceled (Patient) 05/05/2019 Hospital Hematology and Onco logy Encounter Zack Arriaga MD Scholoff, Audrey C., NP Canceled (Department/Provider) 05/01/2019 Hospital Hematology and Onco logy Encounter Savannah Crawford NP 04/29/2019 Refill Hematology and Onco logy after 04/18/2019 Immunizations Name Administration Dates Next Due FLUCELVAX QUAD PF 05/22/2019, 06/06/2018 Hepatitis A 03/24/2020, 07/28/2019 Hepatitis B 01/08/2020, 05/22/2019, Hib (PRP-T) 07/28/2019, 05/22/2019 IPV 01/08/2020, 09/01/2019, 02/2019 Meningococcal MCV4P 07/28/2019 Pneumococcal Conjugate 03/24/2020, 01/08/2020, , 06/19/2019 13-Valent Tdap 09/01/2019, 06/19/2019 Family History Medical History Relation Name Comments Depression Brother 39 Leukemia Cousin Diabetes Father 60 Heart disease Father 60 Kidney failure Father 60 Paget's disease of bone Father 60 Stroke Father 60 Deep vein thrombosis Maternal Grandfather Abnormal EKG Maternal Grandmother Breast cancer Maternal Grandmother Cancer Maternal Breast CA Grandmother Colon cancer Maternal Uncle Diabetes Mother 65 Hyperlipidemia Mother 65 Relation Name Status Comments Brother 39 Alive Cousin Father 60 Alive Maternal Grandfather Maternal Grandmother Maternal Uncle Mother 65 Alive Social History Date Tobacco Use Types Packs/Day Years Used Never Smoker Smokeless Tobacco: Never Used Drinks/Week oz/Week Comments Alcohol Use No Sex Assigned at Date Recorded Not on file Industry Job Start Date Occupation Not on file Not on file Not on file Travel End Travel History Travel Start No recent travel history available. Date Recorded COVID-19 Exposure Response 03/24/2020 9:16 AM CDT In the last month, have you been in contact with No / Unsure someone who was confirmed or suspected to have Coronavirus / COVID-19? Last Filed Vital Signs Reading Time Taken Comments Vital Sign 105/60 03/24/2020 12:31 PM CDT Blood Pressure 84 03/24/2020 12:31 PM CDT Pulse 37.1 C (98.7 F) 03/24/2020 9:21 AM CDT Temperature 19 03/24/2020 9:21 AM CDT Respiratory Rate 96% 03/24/2020 9:21 AM CDT Oxygen Saturation - - Inhaled Oxygen Concentration 134 kg (295 lb 10.2 oz) 03/24/2020 9:21 AM CDT Weight 157.5 cm (5' 2") 03/24/2020 9:21 AM CDT Height 54.07 03/24/2020 9:21 AM CDT Body Mass Index Plan of Treatment Care Team Description Date Type Specialty Zack Arriaga MD [id number] [place] [address] Savannah Crawford NP [address] [place] [address] 04/28/2020 Appointment Hematology and Onco logy Health Maintenance Due Date Last Done Comments DIABETIC RETINAL EYE EXAM 08/04/2019 08/04/2017, 08/04/2017, 08/04/2017, Additional history exists DIABETIC FOOT EXAM 10/03/2019 10/03/2018, 10/03/2018, 05/08/2018, Additional history exists INFLUENZA VACCINE 05/13/2020 05/22/2019, 06/06/2018 CERVICAL CANCER SCREENING 10/30/2021 10/30/2018, 10/30/2018, 05/21/2018 Implants Device Identifier Shelf Expiration Date Model / Serial / L ot Implanted Type Area Manufactur er [id number] / / Catheter Cv Powerline Dlmn Al 6fr - Surgical N/A: N/A BARD [id number] Implants; ACCESS Implanted: 07/26/2017 at [facility] [employer]; [facility] (Quantity not on file) Extenders; Surgical Wires [id number] / / Catheter Cv Powerline Dlmn Al 6fr - Surgical N/A: N/A BARD [id number] Implants; ACCESS Implanted: 09/13/2017 at [facility]; Surgical Wires [id number] / / Catheter Cv Powerline Dlmn Al 6fr - Surgical N/A: N/A BARD [id number] Implants; ACCESS Implanted: 01/15/2018 at [facility] (Quantity not on file) Extenders; Surgical Wires 11/01/2019 [id number] / / [id number] Tray Cvc 3lmn 7.5fr 13ga 20cm Surgical N/A: N/A COOK 0.032in 18tw - [id number] Implants; CRITICAL Implanted: 03/26/2018 at [facility] not on file[facility] [employer]; Surgical Wires Lap Band Lap Band Procedures Comments Procedure Name Priority Date/Time Associated Diag nosis SHORT TANDEM REPEATS Routine 03/24/2020 (CHMERISM TESTING) 11:44 AM CDT SURGICAL PATHOLOGY Routine 03/24/2020 REQUEST 11:40 AM CDT MISCELLANEOUS REFERRAL Routine 03/24/2020 TEST 10:55 AM CDT BONE MARROW TRAY Routine 03/24/2020 10:55 AM CDT FLOW CYTOMETRY EVALUATION Routine 03/24/2020 10:55 AM CDT HC COMPLETE BLD COUNT STAT 03/24/2020 Acute my eloid leukemia W/AUTO DIFF 9:48 AM CDT not having achieved remission (HCC) Status post allogeneic bone marrow transplant (HCC) ESTIMATED GFR STAT 03/24/2020 9:17 AM CDT CYTOMEGALOVIRUS ANTIGEN STAT 03/24/2020 Status post allogeneic 9:17 AM CDT bone marrow transplant (HCC) LDH STAT 03/24/2020 Acute myeloid l eukemia 9:17 AM CDT not having achieved remission (HCC) Status post allogeneic bone marrow transplant (HCC) MAGNESIUM LEVEL STAT 03/24/2020 Acute myeloid leukemia 9:17 AM CDT not having achieved remission (HCC) Status post allogeneic bone marrow transplant (HCC) COMPREHENSIVE METABOLIC STAT 03/24/2020 Acute myeloid leukemia PANEL 9:17 AM CDT not having achieved remission (HCC) Status post allogeneic bone marrow transplant (HCC) MANUAL DIFFERENTIAL STAT 03/10/2020 9:54 AM CDT ESTIMATED GFR STAT 03/10/2020 9:54 AM CDT CD 4 SUBSET STAT 03/10/2020 Status post all ogeneic 9:54 AM CDT bone marrow transplant (HCC) CYTOMEGALOVIRUS ANTIGEN STAT 03/10/2020 Status post allogeneic 9:54 AM CDT bone marrow transplant (HCC) LDH STAT 03/10/2020 Acute myeloid l eukemia 9:54 AM CDT not having achieved remission (HCC) Status post allogeneic bone marrow transplant (HCC) MAGNESIUM LEVEL STAT 03/10/2020 Acute myeloid leukemia 9:54 AM CDT not having achieved remission (HCC) Status post allogeneic bone marrow transplant (HCC) COMPREHENSIVE METABOLIC STAT 03/10/2020 Acute myeloid leukemia PANEL 9:54 AM CDT not having achieved remission (HCC) Status post allogeneic bone marrow transplant (HCC) CBC WITH PLATELET AND STAT 03/10/2020 Acute my eloid leukemia DIFFERENTIAL 9:54 AM CDT not having achieved remission (HCC) Status post allogeneic bone marrow transplant (HCC) SHORT TANDEM REPEATS STAT 01/08/2020 (CHMERISM TESTING) 10:27 AM CDT ESTIMATED GFR STAT 01/08/2020 10:24 AM CDT CD 4 SUBSET STAT 01/08/2020 Status post all ogeneic 10:24 AM CDT bone marrow transplant (HCC) CYTOMEGALOVIRUS ANTIGEN STAT 01/08/2020 Status post allogeneic 10:24 AM CDT bone marrow transplant (HCC) LDH STAT 01/08/2020 Acute myeloid l eukemia 10:24 AM CDT not having achieved remission (HCC) Status post allogeneic bone marrow transplant (HCC) MAGNESIUM LEVEL STAT 01/08/2020 Acute myeloid leukemia 10:24 AM CDT not having achieved remission (HCC) Status post allogeneic bone marrow transplant (HCC) COMPREHENSIVE METABOLIC STAT 01/08/2020 Acute myeloid leukemia PANEL 10:24 AM CDT not having achieved remission (HCC) Status post allogeneic bone marrow transplant (HCC) HC COMPLETE BLD COUNT STAT 01/08/2020 Acute my eloid leukemia W/AUTO DIFF 10:24 AM CDT not having achieved remission (HCC) Status post allogeneic bone marrow transplant (HCC) HC COMPLETE BLD COUNT STAT 09/01/2019 Acute my eloid leukemia W/AUTO DIFF 10:30 AM PROCESSING MGR not having achieved remission (HCC) Status post allogeneic bone marrow transplant (HCC) ESTIMATED GFR STAT 09/01/2019 10:00 AM PROCESSING MGR CD 4 SUBSET STAT 09/01/2019 Status post all ogeneic 10:00 AM PROCESSING MGR bone marrow transplant (HCC) CYTOMEGALOVIRUS ANTIGEN STAT 09/01/2019 Status post allogeneic 10:00 AM PROCESSING MGR bone marrow transplant (HCC) LDH STAT 09/01/2019 Acute myeloid l eukemia 10:00 AM PROCESSING MGR not having achieved remission (HCC) Status post allogeneic bone marrow transplant (HCC) MAGNESIUM LEVEL STAT 09/01/2019 Acute myeloid leukemia 10:00 AM PROCESSING MGR not having achieved remission (HCC) Status post allogeneic bone marrow transplant (HCC) COMPREHENSIVE METABOLIC STAT 09/01/2019 Acute myeloid leukemia PANEL 10:00 AM PROCESSING MGR not having achieved remission (HCC) Status post allogeneic bone marrow transplant (HCC) URINE CULTURE Routine 07/28/2019 10:39 AM PROCESSING MGR GRAM STAIN Routine 07/28/2019 10:39 AM PROCESSING MGR URINALYSIS SCREEN AND Routine 07/28/2019 Dysuria MICROSCOPY, WITH REFLEX 9:55 AM PROCESSING MGR TO CULTURE HC COMPLETE BLD COUNT STAT 07/28/2019 Acute my eloid leukemia W/AUTO DIFF 8:55 AM PROCESSING MGR not having achieved remission (HCC) Status post allogeneic bone marrow transplant (HCC) FERRITIN LEVEL STAT 07/28/2019 8:37 AM PROCESSING MGR ESTIMATED GFR STAT 07/28/2019 8:37 AM PROCESSING MGR T4, FREE STAT 07/28/2019 Acquired hypoth yroidism 8:37 AM PROCESSING MGR THYROID STIMULATING STAT 07/28/2019 Acquired h ypothyroidism HORMONE 8:37 AM PROCESSING MGR CD 4 SUBSET STAT 07/28/2019 Status post all ogeneic 8:37 AM PROCESSING MGR bone marrow transplant (HCC) CYTOMEGALOVIRUS ANTIGEN STAT 07/28/2019 Status post allogeneic 8:37 AM PROCESSING MGR bone marrow transplant (HCC) LDH STAT 07/28/2019 Acute myeloid l eukemia 8:37 AM PROCESSING MGR not having achieved remission (HCC) Status post allogeneic bone marrow transplant (HCC) MAGNESIUM LEVEL STAT 07/28/2019 Acute myeloid leukemia 8:37 AM PROCESSING MGR not having achieved remission (HCC) Status post allogeneic bone marrow transplant (HCC) COMPREHENSIVE METABOLIC STAT 07/28/2019 Acute myeloid leukemia PANEL 8:37 AM PROCESSING MGR not having achieved remission (HCC) Status post allogeneic bone marrow transplant (HCC) HC COMPLETE BLD COUNT STAT 06/19/2019 Acute my eloid leukemia W/AUTO DIFF 10:45 AM PROCESSING MGR not having achieved remission (HCC) Status post allogeneic bone marrow transplant (HCC) ESTIMATED GFR STAT 06/19/2019 10:36 AM PROCESSING MGR CYTOMEGALOVIRUS ANTIGEN STAT 06/19/2019 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) LDH STAT 06/19/2019 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) MAGNESIUM LEVEL STAT 06/19/2019 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) COMPREHENSIVE METABOLIC STAT 06/19/2019 Acute myeloid leukemia PANEL 10:36 AM PROCESSING MGR not having achieved remission (HCC) Status post allogeneic bone marrow transplant (HCC) ESTIMATED GFR STAT 05/22/2019 10:19 AM CDT CYTOMEGALOVIRUS ANTIGEN STAT 05/22/2019 Status post allogeneic 10:19 AM CDT bone marrow transplant (HCC) LDH STAT 05/22/2019 Acute myeloid l eukemia 10:19 AM CDT not having achieved remission (HCC) Status post allogeneic bone marrow transplant (HCC) MAGNESIUM LEVEL STAT 05/22/2019 Acute myeloid leukemia 10:19 AM CDT not having achieved remission (HCC) Status post allogeneic bone marrow transplant (HCC) COMPREHENSIVE METABOLIC STAT 05/22/2019 Acute myeloid leukemia PANEL 10:19 AM CDT not having achieved remission (HCC) Status post allogeneic bone marrow transplant (HCC) HC COMPLETE BLD COUNT STAT 05/22/2019 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 Interpretation 9Monitoring Engraftment [place] Sample # [facility] Name HOSPITAL Type Sample Date Received [id number], Jessica (Pre-recipient)W.B.09-03-1800- [id number], [id number] (Donor)W.B.[id number]--[id number]- [id number] Santos (Rogn-TEN-OTC)B.M.[id number], Jessica (Post-BMT-G)B.M.03-24-2008 Twenty-four STR Loci tested: [id number] ta [id number] of Informative Loci: mononuclear cells (21) granulocytes (21) INTERPRETATION: DNA from mononuclear cells and granulocytes of post-transplant sample dated 03-24-20 is 100% donor origin. Average cell purity post-fractionation is 89% Mononuclear cells and 84% Granulocytes [facility] Short tandem See link below for PDF Lab [facility] Report [facility] ([facility] testing) Specimen Performing Organization Address City/State/[facility] Ph one Number [facility] DEPARTMENT OF [address] [place] [address] PATHOLOGY AND GENOMIC MEDICINE [address] * Surgical pathology request (03/24/2020 11:40 AM CDT) Pathologist Abdoulaye [facility] DEPARTMENT OF PATHOLOGY AND GENOMIC MEDICINE Surgical See link below for PDF Lab [facility] pathology Report OF PATHOLOGY report AND GENOMIC MEDICINE Result status This is Final Report for [facility] DEPARTME NT [id number] OF PATHOLOGY AND GENOMIC MEDICINE Specimen Performing Organization Address City/State/[facility] Ph one Number [facility] DEPARTMENT OF [address] [place] [address] PATHOLOGY AND GENOMIC MEDICINE * Bone marrow tray (03/24/2020 10:55 AM CDT) Pathologist Abdoulaye Bone marrow done [facility] Specimen Fluid Performing Organization Address City/State/[facility] Ph one Number [facility] DEPARTMENT OF [address] [place] [address] PATHOLOGY AND GENOMIC MEDICINE [address] * Miscellaneous referral test (03/24/2020 10:55 AM CDT) Pathologist Abdoulaye Misc test name BONE MARROW BCM SHOWN ABOVE Misc test see note SHOWN ABOVE result Comment: CHROMOSOME/FISH ANALYSIS ONCOLOGY Chromosome Analysis Indication: AML Sample Type: BONE MARROW METHOD OF ANALYSIS: GTG-Banding RESULTS:999 //46,XY[20] INTERPRETATION: Only donor male cells were observed. Chromosome analysis showed a normal male chromosome complement. FISH ONCOLOGY ANALYSIS Method of Analysis: FISH Results: NORMAL: t(8;21)(q22;q22) (JEUM7L4/RUNX1) - Translocation NOT detected t(15;17)(q24;q21) (PML/NOELLE) - Translocation NOT detected inv(16)(p13.1q22) or t(16;16) (CBFB) - Rearrangement NOT detected 8 Centromere (D8Z2) - Normal results reported with MDS panel 11q23 (KMT2A) - Normal results reported with MDS panel INTERPRETATION : Normal FISH analysis for the above loci. Fluorescence in situ hybridization (FISH) studies were performed on this specimen using a panel of DNA probes as listed above designed to detect abnormalities frequently observed in acute myeloid leukemia (AML). At least two hundred nuclei were analyzed for each probe, and all probe sets scored within their normal ranges. There was no evidence of a CBFB rearrangement as seen in a previous FISH analaysis (Lab # [id number]). Therefore, these results are interpreted as normal. The MDS FISH panel is reported separately. Chromosome analysis is pending and will be reported separately. ISCN: nuc frederic(TRPO6E9,PML,CBFB,NOELLE,RUNX 1)x2[200] - FISH ONCOLOGY ANALYSIS Method of Analysis: FISH Results: NORMAL: 5q31 (EGR1) - Deletion NOT detected 7q31 ([id number]) - Deletion NOT detected 8 centromere (D8Z2) - Gain of chromosome 8 NOT detected 11q23 (KMT2A) - Gene rearrangement NOT detected 20q12 (PTPRT) - Deletion NOT detected INTERPRETATION : Normal FISH analysis for the above-named loci. Fluorescence in situ hybridization (FISH) studies were performed on this specimen using a panel of DNA probes designed to detect abnormalities commonly seen in myelodysplastic syndrome (MDS). At least two hundred nuclei were analyzed from each probe. The vast majority of the nuclei studied showed a normal signal pattern for each probe, i.e., the results are normal. ISCN: nuc frederic(EGR1,I8M426,D8Z2,KMT2A,PTP RT)x2[200] Test(s) performed by: [facility] [address] [place] [address] Specimen Narrative Performed At [facility] DEPARTMENT OF PATHOLOGY AND GENOMIC MEDICINE Performing Organization Address City/[facility] Ph one Number [facility] DEPARTMENT OF [address] [place] [address] PATHOLOGY AND GENOMIC MEDICINE SHOWN ABOVE * Flow cytometry evaluation (03/24/2020 10:55 AM CDT) [facility] Flow cytometry See link below for PDF Lab [place] evaluation Report [facility] Specimen Performing Organization Address City/[facility] Ph one Number [facility] DEPARTMENT OF [address] [place] [address] PATHOLOGY AND GENOMIC MEDICINE [facility] * CBC with platelet and differential (03/24/2020 9:48 AM CDT) Only the most recent of 7 results within the time period is included. Pathologist [facility] WBC 10.99 4.50 - 11.00 k/uL [facility] RBC 4.21 4.20 - 5.50 m/uL [facility] HGB 13.5 12.0 - 16.0 g/dL [facility] HCT 39.4 37.0 - 47.0 % [facility] MCV 93.6 82.0 - 100.0 fL [facility] MCH 32.1 27.0 - 34.0 pg [facility] MCHC 34.3 31.0 - 37.0 g/dL [facility] RDW - SD 43.1 37.0 - 55.0 fL [facility] MPV 11.2 8.8 - 13.2 fL [facility] Platelet count 156 150 - 400 k/uL [facility] Neutrophils 76.3 (H) 39.0 - 69.0 % [facility] Lymphocytes 16.3 (L) 25.0 - 45.0 % [facility] Monocytes 4.9 0.0 - 10.0 % [facility] Eosinophils 2.3 0.0 - 5.0 % [facility] Basophils 0.2 0.0 - 1.0 % [facility] Specimen Blood Performing Organization Address City/[facility] Ph one Number [facility] DEPARTMENT OF [address] [place] [address] PATHOLOGY AND GENOMIC MEDICINE [address] * Estimated GFR (03/24/2020 9:17 AM CDT) Only the most recent of 7 results within the time period is included. [facility] Estimated GFR 87 mL/min/1.73 m2 [place] Comment: [facility] Interpretation G1 >=90 Normal or high G2 60-89 Mildly decreased G3a 45-59 Mildly to moderately decreased G3b 30-44 Moderately to severely decreased G4 15-29 Severely decreased G5 <15 Kidney failure The eGFR was calculated using the Chronic Kidney Disease Epidemiology Collaboration (CKD-EPI) equation. Interpretation is based on recommendations of the National Kidney Foundation-Kidney Disease Outcomes Quality Initiative (NKF-KDOQI) published in 2014. Specimen Performing Organization Address City/[facility] Ph one Number [facility] DEPARTMENT OF [address] [place] [address] PATHOLOGY AND GENOMIC MEDICINE [address] * Cytomegalovirus antigen (03/24/2020 9:17 AM CDT) Only the most recent of 7 results within the time period is included. [facility] CMV antigen Not-detected Not-detected [place] Comment: [facility] Reporting Unit: HOSPITAL Cytomegalovirus Antigen Positive Leukocytes by IFA. Note: This assay is approved for qualitative analysis by the FDA. Quantitative procedures have been developed and validated by the Diagnostic Immunology Laboratory within [facility]. CMV negative cells per 50,000 cells examined. Specimen Blood Narrative Performed At Unable to perform testing, specimen is _HEMOLYZED. Recollect [facility] DEPARTMENT OF requested for K AST LDH (tests). ANETTE SALINAS/RYLEY (name/location) notified PATHOLOGY AND by RA(tech ID) at 03/24/2020 11:00 (date/time). Credit issued. GENOMIC MEDICINE Performing Organization Address [facility] Ph one Number [facility] DEPARTMENT OF [address] [place] [address] PATHOLOGY AND GENOMIC MEDICINE [address] * Magnesium level (03/24/2020 9:17 AM CDT) Only the most recent of 7 results within the time period is included. Pathologist [facility] Magnesium 1.8 1.6 - 2.6 mg/dL [facility] Specimen Blood Performing Organization Address City/State/Zipcode Ph one Number [facility] DEPARTMENT OF [address] [place] [address] PATHOLOGY AND GENOMIC MEDICINE [address] * LDH (03/24/2020 9:17 AM CDT) Only the most recent of 7 results within the time period is included. Pathologist [facility] LDH SEE COMMENTComment: 87 - 225 U/L [place] Footnote--------- [facility] Specimen Blood Performing Organization Address [facility] Ph one Number [facility] DEPARTMENT OF [address] [place] [address] PATHOLOGY AND GENOMIC MEDICINE [address] * Comprehensive metabolic panel (03/24/2020 9:17 AM CDT) Only the most recent of 7 results within the time period is included. Sodium 137 135 - 148 mEq/L [facility] Potassium Footnote 3.5 - 5.0 mEq/L [place] Comment: [facility] Unable to perform testing, HOSPITAL specimen is _HEMOLYZED. Recollect requested for K AST LDH(tests). Chloride 102 98 - 112 mEq/L [facility] CO2 20 (L) 24 - 31 mEq/L [facility] Anion gap 15@ANIO 7 - 15 mEq/L [facility] BUN 13 6 - 20 mg/dL [facility] Creatinine 0.84 0.50 - 0.90 mg/dL [facility] Glucose 253 (H) 65 - 99 mg/dL [facility] Calcium 9.4 8.3 - 10.2 mg/dL [facility] Protein 7.4 6.3 - 8.3 g/dL [place] Comment: [facility] [place] 4.6-7.0 g/dL 1 week 4.4-7.6 g/dL 7 months-1year 5.1-7.3 g/dL 1-2 years 5.6-7.5 g/dL >3 years 6.0-8.0 g/dL 18-150 6.3-8.3 g/dL Albumin 3.5 3.5 - 5.0 g/dL [facility] A/G ratio 0.9 0.7 - 3.8 [facility] Alkaline 132 (H) 35 - 104 U/L [place] phosphatase [facility] AST SEE COMMENTComment: 10 - 35 U/L [place] Footnote--------- [facility] ALT 45 5 - 50 U/L [facility] Total bilirubin 0.5 0.0 - 1.2 mg/dL [facility] Specimen Blood Performing Organization Address [facility] Ph one Number [facility] [place] [address] PATHOLOGY AND GENOMIC MEDICINE [address] * Manual differential (03/10/2020 9:54 AM CDT) Manual PERFORMED [place] differential [facility] Neutrophils 76.0 (H) 39.0 - 69.0 % [facility] Lymphocytes 17.0 (L) 25.0 - 45.0 % [facility] Monocytes 5.0 0.0 - 10.0 % [facility] Eosinophils 2.0 0.0 - 5.0 % [facility] Basophils 0.0 0.0 - 1.0 % [facility] Metamyelocytes 0 % [facility] Promyelocytes 0 % [facility] Nucleated RBC 3 /100 WBC [facility] Platelet slide Yefri adequate [place] review [facility] Toxic Slight [place] granulation [facility] Anisocytosis Moderate [facility] Tear drop cells Occasional [facility] Spherocytes Occasional [facility] Ovalocytes Moderate [facility] Enlarged Moderate (A) [facility] Giant platelets Occasional [facility] Specimen Performing Organization Address City/[facility] Ph one Number [facility] DEPARTMENT OF [address] [place] [address] PATHOLOGY AND GENOMIC MEDICINE [address] * CD 4 subset (03/10/2020 9:54 AM CDT) Only the most recent of 4 results within the time period is included. CD4% 23 (L) 37 - 57 % [facility] CD4 absolute 359 (L) 488 - 1,340 ul [place] count [facility] CD4 subset See link below for PDF Lab [place] ReportComment: Case Number: [facility] [id number] HOSPITAL Specimen Blood Performing Organization Address City/[facility] Ph one Number [facility] DEPARTMENT OF [address] [place] [address] PATHOLOGY AND GENOMIC MEDICINE [address] * Gram stain (07/28/2019 10:39 AM PROCESSING MGR) [facility] Gram stain No WBC's [place] result Few Gram positive rods [facility] Occasional Gram negative rods [facility] Comment: Specimen Information Specimen Source: Urine Specimen Site: Clean catch Specimen Urine Performing Organization Address [facility] Ph one Number [facility] DEPARTMENT OF [address] [place] [address] PATHOLOGY AND GENOMIC MEDICINE [address] * Urine culture (07/28/2019 10:39 AM PROCESSING MGR) [facility] Urine culture Escherichia coli RUBI isolate >10-5 cfu/ml [facility] HOSPITAL characteristics of this assay on this isolate were validated by the Microbiology Laboratory at [facility]. This source has not been approved by the U.S. Food and Drug Administration. The results are not intended to be used as the sole means for clinical diagnosis or patient management. The Microbiology Laboratory is authorized under the clinical Laboratory Improvement Amendments of 1988 (CLIA-88) to perform high complexity testing. (A) Comment: Specimen Information Specimen Source: Urine Specimen Site: Clean catch Specimen Urine Antibiotic Method Susceptibility Organism Ampicillin ODESSA >16 mcg/mL: Resistant Escherichia coli Amoxicillin/Clavulanate ODESSA 8/4 mcg/mL: Susceptible Escherichia coli Amikacin ODESSA <=4 mcg/mL: Susceptible Escherichia coli Aztreonam ODESSA <=1 mcg/mL: Susceptible Escherichia coli Ceftazidime ODESSA <=0.5 mcg/mL: Susceptible Escherichia coli Ciprofloxacin ODESSA <=0.5 mcg/mL: Susceptible Escherichia coli Ceftriaxone ODESSA <=0.5 mcg/mL: Susceptible Escherichia coli Cefuroxime Sodium ODESSA <=4 mcg/mL: Susceptible Escherichia coli Cefazolin ODESSA 2 mcg/mL: Susceptible Escherichia coli Cefepime ODESSA <=0.5 mcg/mL: Susceptible Escherichia coli Nitrofurantoin ODESSA <=16 mcg/mL: Susceptible Escherichia coli Cefoxitin ODESSA <=4 mcg/mL: Susceptible Escherichia coli Gentamicin ODESSA <=1 mcg/mL: Susceptible Escherichia coli Imipenem ODESSA <=0.25 mcg/mL: Susceptible Escherichia coli Levofloxacin ODESSA <=1 mcg/mL: Susceptible Escherichia coli Meropenem ODESSA <=0.125 mcg/mL: Susceptible Escherichia coli Tobramycin ODESSA 1 mcg/mL: Susceptible Escherichia coli Ampicillin/Sulbactam ODESSA 16/8 mcg/mL: Resistant Escherichia coli Trimethoprim/Sulfamethoxazole ODESSA <=0.5/9.5 mcg/mL: Susceptible Escherichia coli Tetracycline ODESSA <=1 mcg/mL: Susceptible Escherichia coli Piperacillin/Tazobactam ODESSA <=2/4 mcg/mL: Susceptible Escherichia coli Ertapenem ODESSA <=0.125 mcg/mL: Susceptible Escherichia coli Tigecycline ODESSA <=0.5 mcg/mL: Susceptible Escherichia coli Performing Organization Address City/State/Zipcode Ph one Number [facility] DEPARTMENT OF [address] [place] [address] PATHOLOGY AND GENOMIC MEDICINE [address] * Urinalysis screen and microscopy, with reflex to culture (07/28/2019 9:55 AM PROCESSING MGR) Specimen site Clean catch [facility] Color, UA Yellow [facility] Appearance, UA Hazy [facility] Specific 1.027 1.001 - 1.035 [place] gravity, [facility] pH, UA 6.0 5.0 - 8.5 [facility] Protein, UA Negative Negative [facility] Glucose, UA 3+ (A) Negative [facility] Ketones, UA Trace (A) Negative [facility] Bilirubin, UA Negative Negative [facility] Blood, UA Moderate (A) Negative [facility] Nitrite, UA Negative Negative [facility] Urobilinogen, <2.0 <2.0 [facility] Leukocyte Small (A) Negative [place] esterase, [facility] Epithelial 1 /HPF [place] cells, UA [facility] WBC, UA 16 (H) 0 - 4 /HPF [facility] RBC, UA 7 (H) 0 - 5 /HPF [facility] Bacteria, UA None seen None seen [facility] Yeast, UA None seen [facility] Yeast with None seen [place] [facility] Specimen Urine Performing Organization Address City/[facility] Ph one Number [facility] [place] [address] PATHOLOGY AND GENOMIC MEDICINE [address] * Thyroid stimulating hormone (07/28/2019 8:37 AM PROCESSING MGR) TSH 2.47 0.27 - 4.20 uIU/mL [facility] Specimen Plasma specimen Narrative Performed At [facility] ADDED AND READ BACK TO [place] [id number] ON 07/28/19 10 :13 NXL [facility] DEPARTMENT OF PATHOLOGY AND GENOMIC MEDICINE Performing Organization Address [facility] Ph one Number [facility] [place] [address] PATHOLOGY AND GENOMIC MEDICINE [address] * T4, free (07/28/2019 8:37 AM PROCESSING MGR) T4, free 1.1 0.9 - 1.7 ng/dL [facility] Specimen Plasma specimen Narrative Performed At [facility] ADDED AND READ BACK TO [facility] ON 07/28/19 10 :13 NXL [facility] DEPARTMENT OF PATHOLOGY AND GENOMIC MEDICINE Performing Organization Address [facility] one Number [facility] [place] [address] PATHOLOGY AND GENOMIC MEDICINE [address] * Ferritin level (07/28/2019 8:37 AM PROCESSING MGR) Ferritin level 2,632 (H) 13 - 150 ng/mL [facility] Specimen Plasma specimen Narrative Performed At [facility] ADDED AND READ BACK TO [facility] ON 07/28/19 10 :13 NXL [facility] DEPARTMENT OF _glucose results called to and read back by MARVIN AWAN/WT15 OP AT PATHOLOGY AND 07/28/2019 10:51 BY LM1. 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
--- OUTSIDE RECORDS SUMMARY | 2020-04-18 06:55 | XMS REPORT | Clinical Summary ---
Author Author [facility] Address Unknown Phone Unavailable Care Team Providers Care Community Relations Liaison Name Role Phone PCP Unavailable Allergies Not [...] Not on file Results Not on fileafter 04/18/2019
--- OUTSIDE RECORDS SUMMARY | 2020-04-18 06:55 | XMS REPORT | Continuity of Care Document ---
Author Author Kb [employer] Address Unknown Phone Unavailable Care Team Providers Care Tie Hacker Name Role Phone [employer] Information picsell Unavailable Un available Problems Problem Status Onset Date Classification Date Reported Comments Source N92.1 - EXCESSIVE AND FREQUENT MENSTRU Active [place] [facility] [place] Medications No Data Provided for This Section Allergies, Adverse Reactions, Alerts No Known Medication Allergies Immunizations No Data Provided for This Section Results No Data Provided for This Section Pathology Reports No Data Provided for This Section Diagnostic Reports Report Value Date Source Pelvis w Pelvis Transvaginal US ULTRASOUND OF THE PELVIS History: 35-year-old female with menometrorrhagia. TECHNIQUE: Real-time cruz-scale imaging supplemented with color Doppler of the pelvis was performed transabdominally through the distended urinary bladder and with transvaginal technique. COMPARISON: None. FINDINGS: The uterus is relatively large with normal morphology with a thick endometrium. No distinct fibroids or uterine mass seen. Uterine dimensions are 11.6 x 5.2 x 5.7 cm. Endometrial thickness is 2.4 cm. There is no free fluid in the posterior cul-de-sac. Ovaries have phasic perfusion. Right ovary measures 3.2 x 2.3 x 4.1 cm. Left ovary measures 3.4 x 2.5 x 2.8 cm. The ovaries have small follicles, the left ovary has a 3.1 x 2 x 2.8 cm unilocular cyst, possibly a dominant follicle. IMPRESSION: Large uterus with homogeneous structure of the myometrium without fibroids or masses. The endometrium is relatively thick 2.4 cm. Left ovary has a 3.1 cm cyst likely a dominant follicle. 11/08/2015 [facility] [place] Consultation Notes No Data Provided for This Section Discharge Summaries No Data Provided for This Section History and Physicals No Data Provided for This Section Vital Signs No Data Provided for This Section Encounters Location Location Details Encounter Type Encounter Number Reason For Visit Attending Provider ADM Date DC Date Status Source [facility] [place] [facility] [id number] Tano Cortez 11/08/2015 11/09/2015 [facility] [place] Procedures No Data Provided for This Section Assessment and Plan No Data Provided for This Section Plan of Care No Data Provided for This Section Social History Social History Date Source No data available for this section 11/09/2015 [facility] [place] Family History No Data Provided for This Section Advance Directives No Data Provided for This Section Functional Status No Data Provided for This Section
--- OUTSIDE RECORDS SUMMARY | 2020-04-18 06:56 | XMS REPORT | Continuity of Care Document ---
Author Author [facility] Organization [facility] Address [address] [place] [address] Phone Unavailable Care Team Providers Care Investigator Operator Name Role Phone NONSTAFF PCP Unavailable Corina ESPINOZA, Zack Attphys Yvette RESIDENTIAL SALES EXECUTIVE, Jose Nuñez Attphys Pieter BARRERA, Haylee Attphys Unavailable Trinidad ONOFRE Attphys Unavailable Michelle RESIDENTIAL SALES EXECUTIVE, Ester Attphys Cain ESPINOZA, Poli Garzon Attphys Herminio HERNÁNDEZ Attphys Unavailable Madalyn MCCOY Attphys Unavailable Peter Cortez Attphys Madalyn MCCOY Admphys Unavailable Payers Payer Name Policy Type Policy Number Effective Date Expiration Date S namitalink [facility] MEDICAREBLUE MEDICARE ADVANTAGE HMOxxxxxxxxxxxx2019 -PresentO xxxxxxxxxxxx 2019 00:00[facility]00 [id number] 00:00[facility]00 [facility] Problems Condition Name Condition Details Condition Category Status Onset Date Resolution Date Last Treatment Date Treating Clinician Comments Source Need for hepatitis A vaccination Need for hepatitis A vaccinatio n Disease Active 2020-03-10 00:00:00 Manuel Boss Dysuria Dysuria Disease Active 2019-07-28 00:00:00 Salvatore Boss 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 ons 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ons Disease Active 2019-07-28 00:00:00 Salvatore Boss Acquired hypothyroidism Acquired hypothyroidism Disease Active 2019-06-19 00:00:00 Salvatore lua Need for hepatitis A immunization Need for hepatitis A immunizat ion Disease Active 2019-06-19 00:00:00 [place] Need for meningococcal vaccination Need for meningococcal vaccin ation Disease Active 2019-06-19 00:00:00 [place] Need for pneumococcal vaccination Need for pneumococcal vaccinat ion Disease Active 2019-05-22 00:00:00 [place] Need for polio vaccination Need for polio vaccination Disease Active 2019-05-22 00:00:00 Salvatore lua Need for Tdap vaccination Need for Tdap vaccination Disease Ac tive 2019-04-03 00:00:00 Salvatore lua Anxiety Anxiety Disease Active 2019-04-03 00:00:00 Salvatore Boss Need for Hib vaccination Need for Hib vaccination Disease Acti ve 2019-04-03 00:00:00 Salvatore lua Exposure to hepatitis C Exposure to hepatitis C Disease Active 2019-03-13 00:00:00 Salvatore lua Pre-procedure lab exam Pre-procedure lab exam Disease Active 2018-10-09 00:00:00 Salvatore lua AML (acute myeloid leukemia) in remission AML (acute m yeloid leukemia) in remission Disease Active 2018-10-01 00:00:00 Humble Boss Anxiety about health Anxiety about health Disease Active 00:00:00 Salvatore Boss Pain at surgical site Pain at surgical site Disease Active 201 04-14-19 00:00:00 Salvatore montiel Diarrhea of presumed infectious origin Diarrhea of presumed infectious origin Disease Active 2018-10-01 00:00:00 Salvatore Boss Acute ITP Acute ITP Disease Active 2018-07-03 00:00:00 Overview: 07/03/18 Platelet 28k, BM increased megakaryocytes. Solumedrol 125mg x1, IVIG 1gm/kg x1, Prednisone 60mg daily.07/15/18 platelets peaked at 73k, now 36k. IVIG 1gm/kg and commence Nplate08/22/18 Commence Promacta 08/24/18, Salvatore Boss Viral upper respiratory tract infection Viral upper respirat ory tract infection Disease Active 2018-06-20 00:00:00 Salvatore Boss Need for vaccination for H flu type B Need for vaccination f or H flu type B Disease Active 2018-06-06 00:00:00 Salvatore Boss Acute headache Acute headache Disease Active 2018-05-27 00:00:00 Salvatore Boss Cuba's palsy Cuba's palsy Disease Active 2018-05-20 00:00:00 Overview: 05/19/18 noted.05/20/18 MRI brain and face Mtwnchtl08/9/18 LP WBC 49, 90% lymphs, 6 mono ,2 plasma cells Glucose 94, Protein 80 Cryptoantigen negative. Flow negative. BK PCR CMV PCR HSV PCR negative VZV PCR negative Enterovirus negative PCR EBV PCR negative SERUM Toxo PCR negative. VDRL Fungal, bacterial Salvatore Boss Hypomagnesemia Hypomagnesemia Disease Active 2018-04-22 00:00:00 Salvatore Boss Hypovolemia Hypovolemia Disease Active 2018-04-19 00:00:00 Salvatore Boss Status post allogeneic bone marrow transplant Status p ost allogeneic bone marrow transplant Disease Active 2018-04-15 00:00:00 Overview: Admitted: 03/26/18Regimen: Bu/Cy/CamTransplant: ( allo-MUD): 04/03/18. (received 6.898GQ39/kg) Engraftment date: 04/18/18 (Third consecutive days of ANC> 500). Complications: Neutropenic fever: cultures positive for streptococcus mitis ( will complete Rocephin x3 doses at home). Repeat cultures negative. Chest Xray neg. UA neg. Grade III mucositis: resolved (Community Health Education Coordinator morphin). Grade II Nausea. re solving . GVHD: None CMV: negative PCP prophylaxis: Bactrim... Mon/Sun/Sun. CVC: Left subclavian tripple lumen (04/10/18 ). Discharge: . 05/02/18 PB STR 100% donor.2. 07/03/18 BM 30-40% cellular, AML in remission. Flow negative Cytogenetics FISH AML Inv 16 negative. FISH MDS normal STR 100% donor3. 09/18/18 PB STR 100% donor.4. 10/01/18 BM 60% cellular, AML in remission Flow negative for AML. Cytogenetics 46 XYFISH AML normal FISH MDS normal OJC395% donor.5. 3 CSF Protein 32, Glucose 68, WBC 2, Flow negative. OP 24cm H2O, Cytology negative. 6. 04/03/19 BM 60% cellular, no AML Flow negative. Cytogenetics 46 XY FISH Inv16 and FISH MDS normal STR 100% donor. 01/08/2020 PB STR 96% mononuclear 100% granulocyte donor03/24/2020 BM 50% cellular, no AML. Flow negative. Cytogenetics 46 XY FISH Inv 16 normal. FISH MDS normal STR 100% donor. Salvatore Boss Infection due to Streptococcus mitis group Infection d ue to Streptococcus mitis group Disease Active 2018-04-15 00:00:00 [place] Caodaism Abnormal stress test Abnormal stress test Disease Active 00:00:00 Overview: Added automatically from reque st for surgery [id number] Salvatore Boss Acute cystitis without hematuria Acute cystitis without hematuri a Disease Active 2018-01-02 00:00:00 [place] H/O total hysterectomy H/O total hysterectomy Disease Active 2017-12-27 00:00:00 Overview: 11/16/17 Salvatore torres Complex atypical endometrial hyperplasia Complex atypi katharina endometrial hyperplasia Disease Active 2017-11-16 00:00:00 Salvatore Boss Controlled type 2 diabetes mellitus with out complication, without long-term current use of insulin Controlled type 2 diabetes mellitus with out complication, without long-term current use of insulin Disease Active 2017-10-21 00:00: 00 Salvatore Boss Complex endometrial hyperplasia Complex endometrial hyperplasia Dis ease Active 2017-10-16 00:00:00 Salvatore Boss Vitamin D deficiency Vitamin D deficiency Disease Active 00:00:00 Salvatore Boss FRANCI (acute kidney injury) FRANCI (acute kidney injury) Disease Ac tive 2017-09-09 00:00:[address] Secondary diabetes mellitus Secondary diabetes mellitus Disease Active 2017-09-04 00:00:00 Salvatore Boss Dyslipidemia Dyslipidemia Disease Active 2017-09-04 00:00:00 Salvatore Boss Morbid obesity Morbid obesity Disease Active 2017-08-01 00:00:00 Salvatore Boss Thrombocytopenia Thrombocytopenia Disease Active 2017-08-01 00:00:00 Salvatore Boss AML (acute myeloblastic leukemia) AML (acute myeloblastic leukem ia) Disease Active 2017-07-24 00:00:00 Overview : 1. 07/2017 elevated WBC, severe anemia and thrombocytopenia2. 07/25/17 BM 95% cellular, 33% blasts AMML with eosinophils flow:CD45, CD33, CD13, CD15, HLA-DR, CD38 (dim), CD14 (subset are n egative), CD11b(subset are negative), CD11c, CD36, CD64, HLA-DR, CD123 (variable), CD34 (small subset), MPO. Cytogenetics inv16 with del 7q. 3. 07/25/17 WBC 66k. Hydrea and Cytarabine 1gm IV 4. 07/27/17 3+7 Megan 12/mgm2 + cytarabine 100mg/m25. 08/31/17 BM 80-90% cellular, AML in remission. Flow negative Cytogenetics FISH only, negative for -7 and inv16.6. 08/31/17 HiDAC 3gm/m2 x 6 doses.7. 2 HiDAC 3gm/m2 x6 doses.8. 3 bacteremia, due to Strep saliv.9. 11/16/17 Hysterectomy.10 12/27/17 BM 30-70% cellular, AML in remission. Flow negative Cytogenetics 46XX FISH INV 16 negative and monosomy 7 negative. NGS no mutations.11. 01/15/18 HiDAC 1.5gm/m2 x 6 doses. Salvatore Boss N92.1 - EXCESSIVE AND FREQUENT MENSTRU N92.1 - EXCESSIVE AND FREQUENT MENSTRU Active 10/27/2015 OPID Speer Diagnosis Active 2015-10-27 00:01:00 2015-11-08 09:54:00 [facility] Uterus disorder Uterus disorder Disease Active 2015-08-13 00:00:00 Overview: hyperplasia of uterus. Now with atypia 2017 Salvatore Boss Seizure disorder, focal motor Seizure disorder, focal motor Disease Active 2010-02-11 00:00:00 Salvatore Boss Disease of thyroid gland Disease of thyroid gland Disease Acti ve 2009-08-13 00:00:00 Overview: Began replacement therapy Salvatore Boss Asthma Asthma Disease Active 2009-08-13 00:00:00 Overview: 1. 2010, recurrent brochitis Salvatore Boss Seizures Seizures Disease Active 2008-08-13 00:00:00 Overview: 1. Migraine variant. MRI negative 2008. Salvatore Boss Alopecia areata Alopecia areata Disease Active 2007-07-11 00:00:00 [place] Caodaism Sleep apnea, obstructive Sleep apnea, obstructive Disease Acti ve 1999-08-13 00:00:00 Overview: CPAP, since 1999. Salvatore Boss Allergies, Adverse Reactions, Alerts Allergy Name Allergy Type Status Severity Reaction(s) Onset Date Inacti ve Date Treating Clinician Comments Source Chlorhexidine Propensity to adverse reactions to drug Active Rash 2018-03-29 00:00:00 Salvatore monteil Adhesive Tape-Silicones Propensity to adverse reactions to drug Act harsha Dermatitis 2017-07-24 00:00:00 Blisters Salvatore Boss Pseudoephedrine Hcl Propensity to adverse reactions to drug Active Palpitations 2017-07-24 00:00:00 Tachycardia Salvatore Boss Pseudoephedrine Allergy to Substance Active 2016-11-06 00:0 0:00 [facility] Family History Family Member Diagnosis Comments Start Date Stop Date Source Natural brother Depression Chase M ethodist Cousin Leukemia Salvatore Method ist Natural father Diabetes Chase Me thodist Natural father Heart disease [place] Caodaism Natural father Kidney failure Dannyto n Caodaism Natural father Paget's disease of bone Salvatore Caodaism Natural father Stroke [facility] Me thodist Maternal grandfather Deep vein thrombosis Salvatore Caodaism Maternal grandmother Abnormal EKG [place] Caodaism Maternal grandmother Breast cancer [place] Caodaism Maternal grandmother Cancer Danny adams Caodaism Maternal uncle Colon cancer Salvatore Caodaism Natural mother Diabetes Chase Me thodist Natural mother Hyperlipidemia Diana Boss Social History Social Habit Start Date Stop Date Quantity Comments Source Sex Assigned At Sandra Boss Exposure to SARS-CoV-2 (event) Not sure Salvatore Boss Alcohol intake 2018-11-27 00:00:00 2018-11-27 00:00:00 Current non-drinker of alcohol (finding) Salvatore Boss Social History 2015-11-09 04:59:00 2015-11-09 04:59:00 [facility] Smoking Status Start Date Stop Date Source Never smoker Salvatore montiel Medications Ordered Medication Name Filled Medication Name Start Date Stop Da te Current Medication? Ordering Clinician Indication Dosage Frequency Signature (SIG) Comments Components Source clonAZEPAM (KlonoPIN) 1 MG tablet 2020-03-24 10:06:45 Yes 1mg Q.5D Take 1 mg by mouth 2 (two) times a day. Manuel Boss multivitamin (THERAGRAN) tablet 2020-03-24 10:06:45 Yes 1{tbl} QD Take 1 tablet by mouth daily. Salvatore Boss citalopram (CeleXA) 40 MG tablet 2020-03-24 10:06:45 Yes 40mg QD Take 40 mg by mouth daily. Salvatore Boss cholecalciferol, vitamin D3, (Vitamin D3) 125 mcg (5,000 uni t) tablet 2020-03-24 10:06:45 Yes 1{tbl} QD Take 1 tablet by m outh daily. Salvatore Boss progesterone (PROMETRIUM) 100 MG capsule 2020-03-24 10:06:45 Yes 200mg QD Take 200 mg by mouth daily. Danny Boss atorvastatin (LIPITOR) 40 mg tablet 2020-03-24 10:06:45 Yes 40mg QD Take 40 mg by mouth daily. Salvatore Boss insulin glargine-lixisenatide (Soliqua 100/33) 100 unit-33 m cg/mL insulin pen 2020-03-24 10:06:45 Yes 60U QD Inject 60 Units un liseth the skin daily. Salvatore Boss insulin NPH (HumuLIN-N) 100 unit/mL injection 20 01-03-29 10:59:09 2020-03-10 00:00:00 No 40U Q.5D Inject 40 Unit s under the skin 2 (two) times a day before meals. Salvatore Boss sulfamethoxazole-trimethoprim (BACTRIM DS) 800-160 mg per ta blet 2020-03-10 00:00:00 2020-09-06 23:59:00 Yes 1{tbl} Q.[id number] Take 1 tablet by mouth 3 (three) times a week for 180 days. Salvatore Boss amoxicillin-pot clavulanate (Augmentin) 875-125 mg per table t 2019-11-26 00:00:00 2019-12-06 23:59:00 No Acute serous otitis media, recurrence not specified, unspecified laterality 1{tbl} Q.5D Take 1 tablet by mouth 2 (two) times a day for [address] HUMALOG U-100 INSULIN 100 unit/mL injection 2019 00:00:00 2020-01-08 00:00:00 No INJECT 15 UNIT S UNDER THE SKIN 3 (THREE) TIMES A DAY BEFORE MEALS Salvatore Boss insulin regular (HumuLIN R Regular U-100 Insuln) 100 unit/mL injection 2019-09-01 12:04:03 2019-09-01 00:00:00 No 15U Q.[id number] Inject 15 Units under the skin 3 (three) times a day before meals. SS:<150=0 units, 150-180=4 units, 181-200=6 units, 201-250=8 units, 251-300=10 units, 301-350=12 units, >351=14 units Salvatore Boss insulin lispro (HumaLOG) 100 unit/mL injection 2 11:27:31 2019-09-01 00:00:00 No Q.[id number] In ject under the skin 3 (three) times a day before meals. Per sliding scale [place] bryan Boss insulin regular (HumuLIN R Regular U-100 Insuln) 100 unit/mL injection 2019-09-01 00:00:00 2020-03-10 00:00:00 No Controll ed type 2 diabetes mellitus without complication, without long-term current use of insulin (HCC) 15U Q.[id number] Inject 15 Units under the skin 3 (three) times a day before meals. SS:<150=0 units, 150-180=4 units, 181-200=6 units, 201-250=8 units, 251-300=10 units, 301-350=12 units, >351=14 units Salvatore Boss levoFLOXacin (LEVAQUIN) 500 MG tablet 2019-07-29 00:00 :00 2019-08-08 23:59:00 No 500mg QD Take 1 tablet (500 mg total) by mouth da hay for 10 days. Salvatore Boss valACYclovir (VALTREX) 500 MG tablet 2019-05-22 00:00:00 Yes Status post allogeneic bone marrow transplant (HCC) 500mg QD Take 1 tablet (500 mg total) by mouth daily. Salvatore Boss ergocalciferol (VITAMIN D2) 50,000 unit capsule 2019-04-29 00:00:00 2020-03-10 00:00:00 No TAKE ONE CAPSULE BY MOUTH ONE T OLAYINKA PER WEEK Salvatore Boss QUEtiapine (SEROquel) 100 MG tablet 2019-02-12 00:00:00 Yes 1{tbl} QD Take 1 tablet by mouth nightly. Salvatore Boss ondansetron (ZOFRAN) 8 MG tablet 2018-12-11 00:00:00 2020-03 00:00:00 No Acute myeloid leukemia in remission (HCC) 8mg Q8H Take 1 tablet (8 mg total) by mouth every 8 (eight) hours as needed for nausea or vomiting. Salvatore Boss valACYclovir (VALTREX) 500 MG tablet 2018-12-11 00:00: 00 2019-05-22 00:00:00 No 500mg QD Take 1 tablet (500 mg total) by mouth da hay. Salvatore Boss MAGNESIUM, AMINO ACID CHELATE, 133 mg tablet 201 04-16-15 00:00:00 2019-05-22 00:00:00 No TAKE 1 TABLET BY MOUTH 5 (FIVE) TIMES A DAY. Salvatore Boss VITAMIN D2 50,000 unit capsule 2018-11-25 00:00:00 2019-04-29 00 :00:00 No TAKE ONE CAPSULE BY MOUTH ONE TIME PER WEEK Salvatore Boss flash glucose scanning reader misc 2018-10-03 00:00:00 Yes 1{device} QD 1 Device daily. Salvatore Boss flash glucose sensor kit 2018-10-03 00:00:00 Yes 1{device} Q14D 1 Device every 14 (fourteen) days. Salvatore ramos eltrombopag (PROMACTA) 50 MG tablet 2018-09-04 00:00:0 0 2019-05-22 00:00:00 No 100mg QD Take 2 tablets (100 mg total) by mouth daily. Administer on an empty stomach, 1 hour before or 2 hours after a meal. Salvatore Boss pantoprazole (PROTONIX) 40 MG EC tablet 00:00:00 2019-05-22 00:00:00 No TAKE 1 TABLET BY MOUTH TWICE A DAY Salvatore Boss promethazine (PHENERGAN) 25 MG tablet 2018-05-22 00:00 :00 2020-03-24 00:00:00 No 25mg Q4H Take 1 tablet ( 25 mg total) by mouth every 4 (four) hours as needed for nausea or vomiting. Salvatore Delgaod ethodi dextran 70-hypromellose (ARTIFICIAL TEARS) 0.1-0.3 % drops 2018-05-22 00:00:00 2019-05-22 00:00:00 No 1[drp] Administer 1 drop to both eyes as needed (dry eyes). Slavatore Boss insulin lispro (HumaLOG) 100 unit/mL injection 2 00:00:00 2019-05-22 00:00:00 No 6U Q.[id number] In ject 6 Units under the skin 3 (three) times a day before meals. Diana Boss insulin NPH (HumuLIN-N) 100 unit/mL injection 20 30-05-10 00:00:00 2019-05-22 00:00:00 No 15U Q.5D Inject 15 Unit s under the skin 2 (two) times a day before meals. Salvatore Boss linagliptin (TRADJENTA) 5 mg tablet 2018-05-08 00:00:0 0 2019-05-22 00:00:00 No 5mg QD Take 1 tablet (5 mg total) by mouth lokesh yJordan Boss triamcinolone (KENALOG) 0.1 % cream 2018-05-02 00:00:0 0 2019-05-02 23:59:00 No Acute GVHD (HCC) Q.[id number] A pply topically 3 (three) times a day as needed (GVHD rash). Salvatore adhikari voriconazole (VFEND) 200 MG tablet 2018-04-18 00:00:00 201 04-21-06 23:59:00 No 200mg Q12H Take 1 tablet (200 mg total) by mout h every 12 (twelve) hours. Salvatore Boss lancets (ONETOUCH DELICA LANCETS) 30 gauge [facility] 2018-01-08 00:00 :00 Yes 1{device} Q.25D 1 Device 4 (four) times a day. Salvatore Boss Citalopram Hydrobromide (Celexa) 40 Mg Tablet Citalopr am Hydrobromide (Celexa) 40 Mg Tablet Yes 40 Bedtime [facility] Clonazepam 1 Mg Tablet Clonazepam 1 Mg Tablet Yes 1 Daily [facility] Levofloxacin 500 Mg Tablet Levofloxacin 500 Mg Tablet Yes [facility] [employer] Vitamins , It Works Vitamins , 2017-07-10 00:00:00 No [facility] Lorazepam (Ativan) 1 Mg Tablet, 1 Mg Oral Lorazepam (A tivan) 1 Mg Tablet, 1 Mg Oral 2017-07-10 00:00:00 No 1 Bedtime [facility] Immunizations Ordered Immunization Name Filled Immunization Name Date Status Comments Source Hepatitis A 2020-03-24 00:00:00 Completed [place] Pneumococcal Conjugate 13-Valent 2020-03-24 00:00:00 Compl eted [place] Caodaism IPV 2020-01-08 00:00:00 Completed [place] Pneumococcal Conjugate 13-Valent 2020-01-08 00:00:00 Compl eted [place] Caodaism Hepatitis B 2020-01-08 00:00:00 Completed [place] IPV 2019-09-01 00:00:00 Completed [place] Tdap 2019-09-01 00:00:00 Completed [place] Pneumococcal Conjugate 13-Valent 2019-09-01 00:00:00 Compl eted [facility] Hepatitis A 2019-07-28 00:00:00 Completed [place] Meningococcal MCV4P 2019-07-28 00:00:00 Completed [place] Caodaism Hib (PRP-T) 2019-07-28 00:00:00 Completed [place] Tdap 2019-06-19 00:00:00 Completed [place] IPV 2019-06-19 00:00:00 Completed [place] Pneumococcal Conjugate 13-Valent 2019-06-19 00:00:00 Compl eted [place] Caodaism Hepatitis B 2019-05-22 00:00:00 Completed [place] Hib (PRP-T) 2019-05-22 00:00:00 Completed [place] FLUCELVAX QUAD PF 2019-05-22 00:00:00 Completed Salvatore Boss Hepatitis B 2019-04-03 00:00:00 Completed [place] FLUCELVAX QUAD PF 2018-06-06 00:00:00 Completed Salvatore Boss Vital Signs Vital Name Observation Time Observation Value Comments Source Systolic blood pressure 2020-03-24 12:31:00 105 mm[Hg] Salvatore Boss Diastolic blood pressure 2020-03-24 12:31:00 60 mm[Hg] Salvatore Boss Heart rate 2020-03-24 12:31:00 84 /min Salvatore Boss Body temperature 2020-03-24 09:21:00 37.06 Julieth Danny adams Caodaism Respiratory rate 2020-03-24 09:21:00 19 /min Danny adams Caodaism Body height 2020-03-24 09:21:00 157.5 cm Salvatore Boss Body weight 2020-03-24 09:21:00 134.1 kg Salvatore Boss BMI 2020-03-24 09:21:00 54.07 kg/m2 Salvatore Boss Oxygen saturation in Arterial blood by Pulse oximetry 03-24 09:21:00 96 /min Salvatore Boss Procedures Procedure Date / Time Performed Performing Clinician Sour e SHORT TANDEM REPEATS (CHMERISM TESTING) 2020-03-24 11:44:00 Zack Christianson SURGICAL PATHOLOGY REQUEST 2020-03-24 11:40:00 Zack Rubin FLOW CYTOMETRY EVALUATION 2020-03-24 10:55:00 Zack Rubin BONE MARROW TRAY 2020-03-24 10:55:00 Zack Rubin MISCELLANEOUS REFERRAL TEST 2020-03-24 10:55:00 Zack Rubin HC COMPLETE BLD COUNT W/AUTO DIFF 2020-03-24 09:48:00 Savannah Crawford COMPREHENSIVE METABOLIC PANEL 2020-03-24 09:17:00 Jerica Crawford MAGNESIUM LEVEL 2020-03-24 09:17:00 Savannah Crawford LDH 2020-03-24 09:17:00 Savannah Crawford CYTOMEGALOVIRUS ANTIGEN 2020-03-24 09:17:00 Savannah Crawford ESTIMATED GFR 2020-03-24 09:17:00 Savannah Crawford CBC WITH PLATELET AND DIFFERENTIAL 2020-03-10 09:54:00 Savannah Crawford COMPREHENSIVE METABOLIC PANEL 2020-03-10 09:54:00 Jerica Crawford MAGNESIUM LEVEL 2020-03-10 09:54:00 Savannah Crawford LDH 2020-03-10 09:54:00 Savannah Crawford CYTOMEGALOVIRUS ANTIGEN 2020-03-10 09:54:00 Savannah Crawford CD 4 SUBSET 2020-03-10 09:54:00 Savannah Crawford ESTIMATED GFR 2020-03-10 09:54:00 Savannah Crawford MANUAL DIFFERENTIAL 2020-03-10 09:54:00 Savannah Crawford SHORT TANDEM REPEATS (CHMERISM TESTING) 2020-01-08 10:27:00 Savannah Ford HC COMPLETE BLD COUNT W/AUTO DIFF 2020-01-08 10:24:00 Savannah Crawford COMPREHENSIVE METABOLIC PANEL 2020-01-08 10:24:00 Jerica Crawford MAGNESIUM LEVEL 2020-01-08 10:24:00 Savannah Crawford LDH 2020-01-08 10:24:00 Savannah Crawford CYTOMEGALOVIRUS ANTIGEN 2020-01-08 10:24:00 Savannah Crawford CD 4 SUBSET 2020-01-08 10:24:00 Savannah Crawford ESTIMATED GFR 2020-01-08 10:24:00 Savannah Crawford HC COMPLETE BLD COUNT W/AUTO DIFF 2019-09-01 10:30:00 Savannah Crawford COMPREHENSIVE METABOLIC PANEL 2019-09-01 10:00:00 Jerica Crawford MAGNESIUM LEVEL 2019-09-01 10:00:00 Savannah Crawford LDH 2019-09-01 10:00:00 Savannah Crawford CYTOMEGALOVIRUS ANTIGEN 2019-09-01 10:00:00 Savannah Crawford CD 4 SUBSET 2019-09-01 10:00:00 Savannah Crawford ESTIMATED GFR 2019-09-01 10:00:00 Savannah Crawford GRAM STAIN 2019-07-28 10:39:00 Savannah Crawford URINE CULTURE 2019-07-28 10:39:00 Savannah Crawford URINALYSIS SCREEN AND MICROSCOPY, WITH REFLEX TO CULTURE 201 04-24-16 09:55:00 Savannah Crawford HC COMPLETE BLD COUNT W/AUTO DIFF 2019-07-28 08:55:00 Savannah Crawford COMPREHENSIVE METABOLIC PANEL 2019-07-28 08:37:00 Jerica Crawford MAGNESIUM LEVEL 2019-07-28 08:37:00 Savannah Crawford LDH 2019-07-28 08:37:00 Savannah Crawford CYTOMEGALOVIRUS ANTIGEN 2019-07-28 08:37:00 Savannah Crawford CD 4 SUBSET 2019-07-28 08:37:00 Savannah Crawford THYROID STIMULATING HORMONE 2019-07-28 08:37:00 Savannah Crawford T4, FREE 2019-07-28 08:37:00 Savannah Crawford ESTIMATED GFR 2019-07-28 08:37:00 Savannah Crawford FERRITIN LEVEL 2019-07-28 08:37:00 Savannah Crawford HC COMPLETE BLD COUNT W/AUTO DIFF 2019-06-19 10:45:00 Savannah Crawford COMPREHENSIVE METABOLIC PANEL 2019-06-19 10:36:00 Jerica Crawford MAGNESIUM LEVEL 2019-06-19 10:36:00 Savannah Crawford LDH 2019-06-19 10:36:00 Savannah Crawford CYTOMEGALOVIRUS ANTIGEN 2019-06-19 10:36:00 Savannah Crawford ESTIMATED GFR 2019-06-19 10:36:00 Savannah Crawford HC COMPLETE BLD COUNT W/AUTO DIFF 2019-05-22 10:19:00 Savannah Crawford COMPREHENSIVE METABOLIC PANEL 2019-05-22 10:19:00 Jerica Crawford MAGNESIUM LEVEL 2019-05-22 10:19:00 Savannah Crawford LDH 2019-05-22 10:19:00 Savannah Crawford CYTOMEGALOVIRUS ANTIGEN 2019-05-22 10:19:00 Savannah Crawford ESTIMATED GFR 2019-05-22 10:19:00 Savannah Crawford Plan of Care Planned Activity Planned Date Details Comments Source Future Scheduled Test 2021-10-30 00:00:00 Screening for keven gnant neoplasm of cervix (procedure) [code = 085054722] Salvatore Peck t Future Scheduled Test 2020-05-13 00:00:00 INFLUENZA VACCINE [code = INFLUENZA VACCINE] Salvatore Boss Future Scheduled Test 2019-10-03 00:00:00 DIABETIC FOOT EXAM [code = DIABETIC FOOT EXAM] Salvatore Boss Future Scheduled Test 2019-08-04 00:00:00 DIABETIC RETINAL E YE EXAM [code = DIABETIC RETINAL EYE EXAM] Salvatore Boss Encounters Start Date/Time End Date/Time Encounter Type Admission Type [facility] Care Department Encounter ID Source 2020-03-24 00:00:00 2020-03-24 00:00:00 Outpatient ADRIANA RUBING E [facility] [id number] Salvatore Boss 2020-03-10 00:00:00 2020-03-10 00:00:00 Outpatient CARRADRIANA MUHAMMADG E [facility] [id number] Salvatore Boss 2020-02-03 00:00:00 2020-02-03 00:00:00 Outpatient ADRIANA RUBING E [facility] [id number] Salvatore Boss 2020-01-08 00:00:00 2020-01-08 00:00:00 Outpatient CARRADRIANA MUHAMMADG E [facility] [id number] Salvatore Boss 2019-09-01 00:00:00 2019-09-01 00:00:00 Outpatient CARRADRIANA MUHAMMADG E [facility] [id number] Salvatore Boss 2019-07-28 00:00:00 2019-07-28 00:00:00 Outpatient ADRIANA RUBING E [facility] [id number] Salvatore Boss 2019-07-24 00:00:00 2019-07-24 00:00:00 Outpatient CARRADRIANA MUHAMMADG E [facility] [id number] Salvatore Boss 2019-06-19 00:00:00 2019-06-19 00:00:00 Outpatient LEONELA RUBIN [facility] [id number] Carpio Caodaism 2019-05-22 00:00:00 2019-05-22 00:00:00 Outpatient LEONELA URBIN [facility] [id number] Carpio Caodaism 2019-05-05 00:00:00 2019-05-05 00:00:00 Outpatient CARRLEONELA MUHAMMAD [facility] [id number] Carpio Caodaism 2019-05-01 00:00:00 2019-05-01 00:00:00 Outpatient LEONELA RUBIN [facility] [id number] Carpio Caodaism 2019-04-03 00:00:00 2019-04-03 00:00:00 Outpatient CARRLEONELA MUHAMMAD [facility] [id number] Carpio Caodaism 2019-03-20 00:00:00 2019-03-20 00:00:00 Outpatient CARRLEONELA MUHAMMAD [facility] [id number] Carpio Caodaism 2019-03-13 00:00:00 2019-03-13 00:00:00 Outpatient LEONELA RUBIN [facility] [id number] Carpio Caodaism 2019-03-06 00:00:00 2019-03-06 00:00:00 Outpatient LEONLEA RUBIN [facility] [id number] Carpio Caodaism 2019-02-26 01:29:00 2019-02-26 03:55:00 Departed Emergency Room 1 LORRAINE HERNÁNDEZ [facility] [id number] [facility] 2019-02-20 00:00:00 2019-02-20 00:00:00 Outpatient LEONELA RUBIN [facility] [id number] Carpio Caodaism 2015-11-08 09:46:00 2015-11-08 23:59:00 [facility] [id number] Results Test Description Test Time Test Comments Results Result Comments Source Miscellaneous referral test 2020-04-07 13:39:12 Test Item Misc test name (test code = 2566) BONE MARROW BCM Misc test result (test code = 1730) see note CHROMOSOME/FISH ANALYSIS ONCOLOGYChromosome AnalysisIndication: AMLSample Type: BONE MARROW METHOD OF ANALYSIS: GTG-Banding RESULTS:999//46,XY[20] INTERPRETATION:Only donor male cells were observed. Chromosome analysis showed a normal male chromosome complement. FISH ONCOLOGY ANALYSISMethod of Analysis: FISH Results:NORMAL:t(8;21)(q22;q22) (XJCW1K7/RUNX1 ) - Translocation NOT detectedt(15;17)(q24;q21) (PML/NOELLE) - Translocation NOT detectedinv(16)(p13.1q22) or t(16;16) (CBFB) - Rearrangement NOT detected8 Centromere (D8Z2) - Normal results reported with MDS menni47c42 (KMT2A) - Normal results reported with MDS panel INTERPRETATION :Normal FISH analysis for the above loci. Fluorescence in situ hybridization (FISH) studies were performed on this specimen using a panel of DNA probes as listedabove designed to detect abnormalities frequently observed in acute myeloid leukemia (AML). At least two hundred nucleiwere analyzed for each probe, and all probe sets scored within their normal ranges. There was no evidence of a CBFBrearrangement as seen in a previous FISH analaysis (Lab # [id number]). Therefore, these results are interpreted as normal.The MDS FISH panel is reported separately. Chromosome analysis is pending and will be reported separately. ISCN: nuc frederic(UTEY3G7,PML,CBFB,NOELLE,RUNX1)x2[200] FISH ONCOLOGY ANALYSISMethod of Analysis: FISH Results:NORMAL:5q31 (EGR1) - Deletion NOT kxxjcgga5o49 (J9C761) - Deletion NOT detected8 centromere (D8Z2) - Gain of chromosome 8 NOT pyupkmrw77z87 (KMT2A) - Gene rearrangement NOT sjujtyta19v77 (PTPRT) - Deletion NOT detected INTERPRETATION :Normal FISH analysis for the above-named loci. Fluorescence [...] i.e., the results are normal. ISCN: nuc frederic(EGR1,S0V597,D8Z2,KMT2A,PTPRT)x2[200] Test(s) performed by:[facility] [id number] [facility] [place] [address] JONI (test code = JONI) [facility] M[facility]rt tandem [facility] (chmerism testing)2020-03-26 12:57:13* Test Item Value Reference Range Interpretation Comments Interpretation (test code = 0474249) 9Monitoring [facility] ftmentSample #NameTypeSample DateReceived Zhhm72-2180Ehshhju, Jessica(Pre-recipient)W.B.09-03-1800-47-4323-84501TIFA, 6476-3784-7(Donor)W.B.02-18-1807-11-5465-42809MHnycppa, Jessica(Pos t-BMT-MNC)B.M.03-24-200873-2039-10807CDbxmlcj, Jessica(Post-BMT-G)B.M. Twenty-four STR Loci tested:POYN8M6J3472V8A1243R4R513B50M7751W90O511Caehm VE65L995W15G44X5C4155XSQ9SYXxqrf D NL89qNHG34V48Q6X559P0X847QUDVLHB246O5H6193D53I429A11I802NZCH78H9547Vzizvf of Informative Loci: mononuclear cells (21) granulocytes (21) INTERPRETATION:DNA from mononuclear cells and granulocytes of post-transplant sample dated 03-24-20 is 100% donor origin.Average cell purity post- fractionation is 89% Mononuclear cells and 84% Granulocytes Case number (test code = 9818484) [id number] Short tandem repeats (chmerism testing) (test code = 4 96) See link below for PDF Lab Report [facility] CenterCytomegalovirus brsjylv6523-97-73 14:58:34* Test Item Value Reference Range Interpretation Comments CMV antigen (test code = 1086) Not-detected Not-detected Reporting Unit: Cytomegalovirus Antigen Positive Leukocytes byIFA. Note: This assay is approved for qualitative analysis by the FDA. Quantitative procedures have been developed and validated by the Diagnostic Immunology Laboratory within [facility]. CMV negative cells per 50,000 cells examined. JONI (test code = JONI) Unable to perform testing, s pecimen is _HEMOLYZED. Recollect requested for K AST LDH (tests). ANETTE SALINAS/WT15 (name/location) notified by RA(tech ID) at 03/24/2020 11:00 (date/time). Credit issued. [facility] jsibovl9478-52-85 14:49:16* Test Item Value Reference Range Interpretation Comments Case number (test code = 6772653) [id number] Surgical pathology report (test code = 2255) See link below for PDF Lab Report Result status (test code = 1655816) This is Final Report for [id number] 8887-10 [facility] Center[facility] cytometry fvykzpbgro5205-99-68 13:54:19* Test Item Value Reference Range Interpretation Comments Case number (test code = 8345503) [id number] Flow cytometry evaluation (test code = 3327583) See li rosita below for PDF Lab Report [facility] CenterB[facility] marrow ytgd4984-66-99 11:51:06* Test Item Value Reference Range Interpretation Comments Bone marrow tray (test code = 989) done [facility] CenterComprehensive metabolic qgodj7417-21-47 10:56:04* Test Item Value Reference Range Interpretation Comments Sodium (test code = 2951-2) 137 135- 148 mEq/L Potassium (test code = 2823-3) Footnote 3.5- 5.0 mEq/L Unable to perform testing, specimen is _HEMOLYZED. Recollect requested for K AST LDH(tests). Chloride (test code = 2075-0) 102 98- 112 mEq/L CO2 (test code = 2027-9) 20 24- 31 mEq/L L Anion gap (test code = 56580-7) 15@ANIO 7- 15 mEq/L BUN (test code = 3094-0) 13 mg/dL 6-20 Creatinine (test code = 2160-0) 0.84 mg/dL 0.5-0.9 Glucose (test code = 2345-7) 253 mg/dL 65-99 H Calcium (test code = 40833-1) 9.4 mg/dL 8.3-10.2 Protein (test code = 2885-2) 7.4 g/dL 6.3-8.3 -[place] 4.6- 7.0 g/dL1 week 4.4-7.6 g/dL7 months-1year 5.1-7.3 g/dL1-2 years 5.6-7.5 g/dL>3 years 6.0-8.0 g/cS91-277 6.3-8.3 g/dL Albumin (test code = 1751-7) 3.5 g/dL 3.5-5 A/G ratio (test code = 1759-0) 0.9 0.7-3.8 Alkaline phosphatase (test code = 6768-6) 132 U/L 35-104 H AST (test code = 1920-8) SEE COMMENT 10-35 Ros tnote--------- ALT (test code = 1742-6) 45 U/L 5-50 Total bilirubin (test code = 1975-2) 0.5 mg/dL 0-1.2 Lab Interpretation (test code = 04275-4) Abnormal [facility]Magn[facility] grzjw9944-37-16 10:56:04* Test Item Value Reference Range Interpretation Comments Magnesium (test code = 84717-5) 1.8 mg/dL 1.6-2.6 [facility] MethodistEstimated NFG4540-36-58 10:56:04* Test Item Value Reference Range Interpretation Comments Estimated GFR (test code = 5488) 87 mL/min/1.73 m2 Catergory Units InterpretationG1 >=90 Normal or highG2 60-89 Mildly fzjshoacuR5d 45-59 Mildly to moderately kdxpnckyfC9j 30-44 Moderately to severely decreasedG4 15-29 Severely decreasedG5 <15 Kidney failureThe eGFR was calculated using the Chronic Kidney Disease Epidemiology Collaboration (CKD-EPI) equation. Interpretation is based on recommendations of the National Kidney Foundation-Kidney Disease Outcomes Quality Initiative (NKF-KDOQI) published in 2014. Salvatore JarrellZjdgbavmjQAO8181-45-23 10:55:59* Test Item Value Reference Range Interpretation Comments LDH (test code = 86431-5) SEE COMMENT 83-857 Fo otnote--------- [facility] MethodistCBC with platelet and mtrgmzqcotuf3548-39-40 10:03:07* Test Item Value Reference Range Interpretation Comments WBC (test code = 86589-1) 10.99 4.50- 11.00 k/uL RBC (test code = 42684-2) 4.21 m/uL 4.2-5.5 HGB (test code = 718-7) 13.5 g/dL 12-16 HCT (test code = 4544-3) 39.4 % 37-47 MCV (test code = 787-2) 93.6 fL 82-100 MCH (test code = 785-6) 32.1 pg 27-34 MCHC (test code = 786-4) 34.3 g/dL 31-37 RDW - SD (test code = 23149-1) 43.1 fL 37-55 MPV (test code = 25526-1) 11.2 fL 8.8-13.2 Platelet count (test code = 98081-6) 156 150- 400 k/uL Neutrophils (test code = 49585-1) 76.3 % 39-69 H Lymphocytes (test code = 30689-6) 16.3 % 25-45 L Monocytes (test code = 69151-4) 4.9 % 0-10 Eosinophils (test code = 21118-0) 2.3 % 0-5 Basophils (test code = 66832-4) 0.2 % 0-1 Lab Interpretation (test code = 00032-0) Abnormal [facility] MethodistCD 4 vkbvjl9546-44-37 14:23:15* Test Item Value Reference Range Interpretation Comments CD4% (test code = 8123-2) 23 % 37-57 L CD4 absolute count (test code = 27451-2) 359 ul 488-1340 L CD4 subset (test code = 1011) See link below for PDF Lab Report Lab Interpretation (test code = 59535-5) Abnormal [facility] MethodistManual pkpapghnavzc2824-61-81 10:32:20* Test Item Value Reference Range Interpretation Comments Manual differential (test code = 69523-6) PERFORMED Neutrophils (test code = 01554-4) 76.0 % 39-69 H Lymphocytes (test code = 44859-5) 17.0 % 25-45 L Monocytes (test code = 98092-0) 5.0 % 0-10 Eosinophils (test code = 72108-5) 2.0 % 0-5 Basophils (test code = 27686-5) 0.0 % 0-1 Metamyelocytes (test code = 740-1) 0 % Promyelocytes (test code = 783-1) 0 % Nucleated RBC (test code = 81260-8) 3 /100 WBC Platelet slide review (test code = 79130-7) Yefri adequate Toxic granulation (test code = 803-7) Slight Anisocytosis (test code = 702-1) Moderate Tear drop cells (test code = 7791-7) Occasional Spherocytes (test code = 802-9) Occasional Ovalocytes (test code = 774-0) Moderate Enlarged platelets (test code = 06661-8) Moderate A Giant platelets (test code = 5908-9) Occasional Lab Interpretation (test code = 66509-6) Abnormal [facility] MethodistCT IACS QO6088-90-04 05:34:00 [place] [address] Patient Name: DEANN KLEIN MR #: [id number] : 1980 Age/Sex: 39/F Req #: [id number] Adm Physician: Ordered by: PANDA ONOFRE MD Report #: [id number] Location: [facility] Room/Bed: Procedure: [id number] CT/CT IACS WO Exam Date: 12/03/19 Exam Time: 05 00 REPORT STATUS: Signed History :Right ear infection. Comparison studies:None Technique: Axial, cor onal and sagittal images through the temporal bones. Dose modulation, iterativ e reconstruction, and/or weight based adjustment of the mA/kV was utilized to reduce the radiation dose to as low as reasonably achievable. Intravenous co ntrast: None Findings: Right: External auditory canal: Extensive sof t tissue thickening effacing the right external auditory canal no osseous eros harsha changes. Tympanic membrane: Not well visualized. Middle ear and mastoid cavities: Near complete opacification. The Prussack's space is opacified, scut um is intact. Questionable focal dehiscence of medial aspect of tegmen tympani . Mastoid air cells: Partial opacification. Tegmen mastoideum is intact. Oss icles: The malleus, incus are grossly intact. Stapes is not well visualized. C ochlea, vestibule, internal acoustic canals: Grossly intact. Semicircular henrry ls: Focal dehisence of superior semicircular canal (image 88, series 300). Endolymphatic ducts: Normal in size. No dilated. Petrous apices: Unremarkable , not aerated. Facial canals: Focal dehiscent of the facial canal in the tympa adali segment (image 62, series 301) at the junction of the distal labyrinthine segment and proximal tympanic segment (in the region of the anterior genu). Left: External auditory canal: Clear and patent Tympanic membrane: Barely visualized and unremarkable. Middle ear and mastoid cavities: Clear. Mastoi d air cells: Clear Ossicles: The malleus, incus and stapes are grossly intact. Cochlea, vestibule, internal acoustic canals: Grossly intact. Semicircular canals: Grossly intact. Not dehiscent. Endolymphatic ducts: Normal in size. No dilated. Petrous apices: Unremarkable, not aerated. Facial canals: No abn ormalities in the labyrinthine, tympanic or mastoid segments of the facial ner ve,. IMPRESSION: Right temporal bone: 1. Marked right otitis continuous towel roller a, otitis media and mastoiditis. 2. Questionable focal dehiscence of the medi al aspect of the tegmen tympani. 3. 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 Left tempor al bone: No abnormality. Signed by: Dr. Az Duvall M.D. on 2019 6:10 AM Dictated By: AZ DUVALL MD 9 Transcribed By: AGNES on 12/03/19609 COPY TO: PANDA ONOFRE MD Gram tlsky4003-41-74 01:15:13Gram stain resultNo WBC'sFew Gram positive rodsOccasional Gram negative rods Comment: Specimen InformationSpecimen Source: UrineSpecimen Site: Clean catch [facility] MethodistFerritin sojed9160-69-43 12:34:23* Test Item Value Reference Range Interpretation Comments Ferritin level (test code = 2276-4) 2632 ng/mL 13-150 H JONI (test code = JONI) GERMAN ADDED AND READ BACK TO [place] [address] ON 07/28/19 10:13 NXL_glucose results called to and read back by MARVIN BANERJEE/[facility] OP AT 07/28/2019 10:51 BY LM1. Lab Interpretation (test code = 83222-0) Abnormal [facility] MethodistT4, clwg4225-40-52 10:47:28* Test Item Value Reference Range Interpretation Comments T4, free (test code = 3024-7) 1.1 ng/dL 0.9-1.7 JONI (test code = JONI) GERMAN ADDED AND READ BACK TO [place] [address] ON 07/28/19 10:13 NXL [facility] MethodistThyroid stimulating akeqquq8011-13-01 10:47:28* Test Item Value Reference Range Interpretation Comments TSH (test code = 3016-3) 2.47 0.27- 4.20 uIU/mL JONI (test code = JONI) GERMAN ADDED AND READ BACK TO [place] [address] ON 07/28/19 10:13 NXL [facility] MethodistUrinalysis screen and microscopy, with reflex to culture 2019-07-28 10:39:01* Test Item Value Reference Range Interpretation Comments Specimen site (test code = 8927271) Clean catch Color, UA (test code = 5778-6) Yellow Appearance, UA (test code = 5767-9) Hazy Specific gravity, UA (test code = 5811-5) 1.027 1.001-1.035 pH, UA (test code = 5803-2) 6.0 5.0-8.5 Protein, UA (test code = 54379-5) Negative Negative Glucose, UA (test code = 87780-5) 3+ Negative A Ketones, UA (test code = 2514-8) Trace Negative A Bilirubin, UA (test code = 5770-3) Negative Negative Blood, UA (test code = 5794-3) Moderate Negative A Nitrite, UA (test code = 5802-4) Negative Negative Urobilinogen, UA (test code = 98958-6) <2.0 <2.0 Leukocyte esterase, UA (test code = 5799-2) Small Negative A Epithelial cells, UA (test code = 5787-7) 1 /HPF WBC, UA (test code = 5821-4) 16 0- 4 /HPF H RBC, UA (test code = 33572-4) 7 0- 5 /HPF H Bacteria, UA (test code = 24653-6) None seen None seen Yeast, UA (test code = 25158-5) None seen Yeast with pseudohyphae, UA (test code = 45854-7) None seen Lab Interpretation (test code = 79684-6) Abnormal [facility] 02:04:00 [place] [address] Patient Name: DEANN KLEIN MR #: [id number] : 1980 Age/Sex: 39/F Req #: [id number] Adm Physician: Ordered by: LORRAINE HERNÁNDEZ MD Report #: [id number] Location: ER Room/Bed: Procedure: [id number] DX/FINGER LEFT Exam Date: Exam Time: REPORT STATUS: Signed LEFT THUMB - 3 Images HISTORY: Status post knee right, eval for foreign body COMPARISON: None available. FINDINGS: Bones: No acute displaced f racture. No aggressive osseous lesion. Joints: Osseous alignment is within normal limits and the joint spaces are well-maintained. Soft t issues: No radiopaque foreign body. IMPRESSION: No acute radiograph ic abnormality. Signed by: Dr. Papa Ferrari D.O., M.M.M. on 02/26/2019 2:06 AM Dictated By: PAPA FERRARI DO 5 Transcribed By: AGNES on 02/26/19205 COPY TO: LORRAINE CLAYTON MD CT CHEST W [place] [address] Patient Name: DEANN KLEIN MR #: [id number] : 1980 Age/Sex: 37/F Req #: [id number] Adm Physician: LEYDA MCCOY MD Ordered by: NAVJOT RANGEL MD Report #: [id number] Location: MED/SURG Room/Bed: [facility] Procedure: [id number] CT/ CT CHEST W Exam Date: 07/11/17 Exam Time: 1640 REPORT STATUS: Signed EXAM: CT Chest, Abdomen and Pelvis WITH contrast I NDICATION: Right upper lobe lesion. Infiltrate. Pain. COMPARISON: CT abdomen dated 03/03/2017. TECHNIQUE: Chest, abdomen and pelvis were scanned utilizing a multidetector helical scanner from the lung apex to the pubic symphysis befor e and after administration of IV contrast. Coronal and sagittal reformations w ere obtained. Routine protocol was performed. Scan was performed when during p ortal venous phase. IV CONTRAST: 100 cc Isovue 370. ORAL CONTRAST: Water RADIATION DOSE: Total DLP: 1012.08 mGy*cm Estimated effective dose: (DLP x 0.015 x size factor) mSv COMPLICATIONS: None FINDINGS: LINES and TUBES: None. Gastric lap band appears in adequate position. Connecting tubing and subcutaneous port. I ntact. LUNGS AND AIRWAYS: Irregular patchy consolidation with air bronchogr ams in the right upper lobe measuring 3.5 cm in maximal dimension on image 101 . Irregular patchy consolidation with air bronchograms in the right upper lobe laterally measures 2.2 cm on coronal image 115. Patchy consolidation in the r ight apex measure 3.2 cm on coronal image 118. Irregular patchy consolidation in the super segment of the right lower lobe. 5 mm calcified nodule in the rig ht lower lobe on coronal image 89. Bilateral dependent atelectasis. PLEUR A: The pleural spaces are clear. HEART AND MEDIASTINUM: The thyroid gland i s normal. Mild mediastinal lipomatosis. No mediastinal, hilar or axillary lymp hadenopathy. The heart is normal in size.. There is no pericardial effusion. HEPATOBILIARY: Hepatomegaly. Diffuse hepatic steatosis. No focal hepa tic lesions. No biliary ductal dilation. GALLBLADDER: Surgically absent . SPLEEN: The spleen is enlarged measuring 15.0 cm in craniocaudal dimensio n. PANCREAS: No focal masses or ductal dilatation. ADRENALS: No adre nal nodules KIDNEYS/URETERS: Kidneys enhance symmetrically. No hydrone phrosis. No cystic or solid mass lesions. No stones. GI TRACT: No abnorm al distention, wall thickening, or evidence of bowel obstruction. Append ix is normal. PELVIC ORGANS/BLADDER: 4.5 cm oval low-attenuation lesion in the left adnexa previously 4.1 cm possibly a paraovarian cyst. Mildly prominen t external iliac lymph nodes the largest on the left measuring 1.1 cm in short axis, nonspecific. LYMPH NODES: No lymphadenopathy. VESSELS: Unrema rkable. PERITONEUM / RETROPERITONEUM: No free air or fluid. BONES: Unr emarkable. SOFT TISSUES: Unremarkable. IMPRESSION: 1. Multifoca l right upper lobe patchy consolidation with air bronchograms suggestive of in fectious etiology/pneumonia in the proper and lateral views chest x-ray in 6-8 weeks after treatment to document resolution. 1. 5 mm noncalcified nod ule in the right lower lobe is nonspecific. History of chronic smoking, consid er follow-up CT chest nodule protocol in 6 months. Clinical setting. Recommend follow-up chest PA. 2. Hepatomegaly and hepatic steatosis. 3. Splen omegaly. Signed by: Dr. Rigo Marmolejo M.D. on 07/11/2017 5:59 PM Dictated By: MIKE MARMOLEJO MD, MD 58 Transcribed By: AGNES on 07/11/171758 COPY TO: NAVJOT RANGEL MD CT ABDOMEN/PELVIS W [place] [address] Patient Name: DEANN KLEIN MR #: [id number] : 1980 Age/Sex: 37/F Req #: [id number] Adm Physician: LEYDA MCCOY MD Ordered by: SHIRAZ ANSARI MD Report #: [id number] Location: MED/SURG Room/Bed: [facility] Procedure: [id number] CT/C T ABDOMEN/PELVIS W Exam Date: 07/11/17 Exam Time: 16 40 REPORT STATUS: Signed EXAM: CT Chest, Abdomen and Pelvis WITH contra st INDICATION: Right upper lobe lesion. Infiltrate. Pain. COMPARISON: CT abdomen dated 03/03/2017. TECHNIQUE: Chest, abdomen and pelvis were scanned uti lizing a multidetector helical scanner from the lung apex to the pubic symphys is before and after administration of IV contrast. Coronal and sagittal reform ations were obtained. Routine protocol was performed. Scan was performed when during portal venous phase. IV CONTRAST: 100 cc Isovue 370. ORAL CONTRAST: Water RADIATION DOSE: Total DLP: 1012.08 mGy*cm Estimated effective dose: (DLP x 0.015 x size factor) mSv COMPLICATIONS: None FINDINGS: LINES and TUBES: None. Gas tric lap band appears in adequate position. Connecting tubing and subcutaneous port. Intact. LUNGS AND AIRWAYS: Irregular patchy consolidation with air b ronchograms in the right upper lobe measuring 3.5 cm in maximal dimension on i mage 101. Irregular patchy consolidation with air bronchograms in the right up per lobe laterally measures 2.2 cm on coronal image 115. Patchy consolidation in the right apex measure 3.2 cm on coronal image 118. Irregular patchy consol idation in the super segment of the right lower lobe. 5 mm calcified nodule in the right lower lobe on coronal image 89. Bilateral dependent atelectasis. PLEURA: The pleural spaces are clear. HEART AND MEDIASTINUM: The thyroid gland is normal. Mild mediastinal lipomatosis. No mediastinal, hilar or axill valentine lymphadenopathy. The heart is normal in size.. There is no pericardial ef fusion. HEPATOBILIARY: Hepatomegaly. Diffuse hepatic steatosis. No fo katharina hepatic lesions. No biliary ductal dilation. GALLBLADDER: Surgicall y absent. SPLEEN: The spleen is enlarged measuring 15.0 cm in craniocaudal dimension. PANCREAS: No focal masses or ductal dilatation. ADRENALS: No adrenal nodules KIDNEYS/URETERS: Kidneys enhance symmetrically. No hydronephrosis. No cystic or solid mass lesions. No stones. GI TRACT: N o abnormal distention, wall thickening, or evidence of bowel obstruction. Appendix is normal. PELVIC ORGANS/BLADDER: 4.5 cm oval low-attenuation le tavon in the left adnexa previously 4.1 cm possibly a paraovarian cyst. Mildly prominent external iliac lymph nodes the largest on the left measuring 1.1 cm in short axis, nonspecific. LYMPH NODES: No lymphadenopathy. VESSELS : Unremarkable. PERITONEUM / RETROPERITONEUM: No free air or fluid. JUDY GUILLERMO: Unremarkable. SOFT TISSUES: Unremarkable. IMPRESSION: 1. M ultifocal right upper lobe patchy consolidation with air bronchograms suggesti ve of infectious etiology/pneumonia in the proper and lateral views chest x-ra y in 6-8 weeks after treatment to document resolution. 1. 5 mm noncalci fied nodule in the right lower lobe is nonspecific. History of chronic smoking , consider follow-up CT chest nodule protocol in 6 months. Clinical setting. R ecommend follow-up chest PA. 2. Hepatomegaly and hepatic steatosis. 3 . Splenomegaly. Signed by: Dr. Rigo Marmolejo M.D. on 07/11/2017 5: 59 PM Dictated By: MIKE MARMOLEJO MD, MD 58 Transcribed By: AGNES on 07/11/171758 COPY TO: SHIRAZ ANSARI MD CHEST 2 VIEWS [place] [address] Patient Name: DEANN KLEIN MR #: [id number] : 1980 Age/Sex: 37/F Req #: [id number] Adm Physician: Ordered by: ORALIA LEGER MD Report #: [id number] Location: ER Room/Bed: Procedure: [id number] DX/CHEST 2 VIEWS Exam Sachin e: 07/10/17 Exam Time: 1230 REPORT STATUS: Sign ed PROCEDURE: X-RAY CHEST, TWO VIEWS COMPARISON: None. INDICATIONS: PNEUM ONIA, WHEEZING FINDINGS: Lungs are well-inflated. Patchy suprahila r/right upper lobe consolidation. No pleural effusion or pneumothorax. Cardio mediastinal contour and pulmonary vasculature are within normal limits. No ac beata osseous abnormality. Gastric band apparatus partially visualized. CONCLUSION: Right upper lobe/suprahilar airspace disease compatibl e with pneumonia. Followup chest radiograph in 6-8 weeks is suggested after t reatment to document resolution. Dictated by: Jorge Leo M.D. on 11/ at 12:57 Electronically approved by: Jorge Leo M.D. on 017 at 12:57 Dictated By: JORGE LEO MD [id number] Transcribed By: BRIGETTE on 07/10/17 1257 COPY TO: ORALIA LEGER MD
--- NOTE | 2020-04-18 07:10 | Emergency Department Note ---
History of Present Illnes History of Present Illness Chief Complaint: Skin Rash or Abscess History of Present Illness This is a 40 year old female c cc skin rash . Historian: Patient Arrival Mode: Car Onset (how long ago): day(s) (2) Location: RIGHT ABDOMNAL Wall Quality: sharp Radiation: Denies non-radiation, Denies back, Denies neck, Denies extremity, Denies abdomen, Denies periumbilical, Denies flank, Denies proximal, Denies distal, Denies other Severity: moderate Onset quality: sudden Duration (how long): day(s) (2) Timing of current episode: constant Progression: unchanged Chronicity: new Context: Denies recent illness, Denies recent surgery, Denies recent immobilization, Denies recent travel, Denies trauma/injury, Denies new medications, Denies hx of DVT/PE, Denies non-compliance w/ medications, Denies other Relieving factors: none Exacerbating factors: none Associated symptoms: Reports denies other symptoms Treatments prior to arrival: none Past Medical/Family History Physician Review I have reviewed the patient's past medical and family history. Any updates have been documented here. Past Medical History Recent Fever: No Clinical Suspicion of Infectio: No New/Unexplained Change in Ment: No Past Medical History: Diabetes, Cancer, Anxiety, Hyperlipedemia Other Medical History: IDDM SLEEP APNEA HPV AML LEUKEMIA (REMISSION X2 YEARS) UTERINE CANCER Past Surgical History: Hysterectomy Other Surgery: LAP BAND 07 D&C X3 BREAST REDUCTION BONE MARROW TRANSPLANT 04/03/18 Social History Smoking Cessation: Former smoker Counseling Performed: No Alcohol Use: None Any Illegal Drug Use: No Physically hurt or threatened: No Other Last Tetanus: OOD Any Pre-Existing Lines (PICC,: No Review of Systems Review of Systems Constitutional: Reports no symptoms EENTM: Reports no symptoms Cardiovascular: Reports no symptoms Respiratory: Reports no symptoms Gastrointestinal: Reports no symptoms Genitourinary: Reports no symptoms Musculoskeletal: Reports no symptoms Integumentary: Reports as per HPI Neurological: Reports no symptoms Psychological: Reports no symptoms Endocrine: Reports no symptoms Hematological/Lymphatic: Reports no symptoms Physical Exam Related Data Allergies: Coded Allergies: lavender (Lavandula angustifolia) (Verified Allergy, Unknown, 12/03/19) pseudoephedrine (Verified Allergy, Unknown, 11/06/16) Triage Vital Signs Vital Signs Date Time Temp Pulse Resp B/P (MAP) Pulse Ox O2 Delivery O2 Flow Rate FiO2 04/18/20 06:32 97.9 98 18 142/98 100 Room Air Vital signs reviewed: Yes Physical Exam CONSTITUTIONAL Constitutional: Present well-developed, Present well-nourished HENT HENT: Present normocephalic, Present atraumatic, Present oropharynx clear/moist, Present nose normal HENT L/R: Present left ext ear normal, Present right ext ear normal EYES Eyes: Reports PERRL, Reports conjunctivae normal NECK Neck: Present ROM normal PULMONARY Pulmonary: Present effort normal, Present breath sounds normal CARDIOVASCULAR Cardiovascular: Present regular rhythm, Present heart sounds normal, Present capillary refill normal, Present normal rate GASTROINTESTINAL Abdominal: Present soft, Present nontender, Present bowel sounds normal GENITOURINARY Genitourinary: Present exam deferred SKIN Skin: Present warm, Present dry, Present rash (right abdomen) MUSCULOSKELETAL Musculoskeletal: Present ROM normal NEUROLOGICAL Neurological: Present alert, Present oriented x 3, Present no gross motor or sensory deficits PSYCHOLOGICAL Psychological: Present mood/affect normal, Present judgement normal Assessment & Plan Medical Decision Making MDM zoster rash Reassessment Reassessment same Assessment & Plan Final Impression: (1) Herpes zoster (2) Rash Depart Disposition: HOME, SELF-CARE Last Vital Signs Date Time Temp Pulse Resp B/P (MAP) Pulse Ox O2 Delivery O2 Flow Rate FiO2 04/18/20 06:32 97.9 98 18 142/98 100 Room Air Home Meds Active Scripts Ciprofloxacin Hcl* (CIPRODEX OTIC SUSPENSION*) 7.5 Ml Drpette, 0 ML OT BID for 7 Days, #1 Prov:ABDIAS CRUZ [employer]ACH[employer]ERY OPERATOR 12/05/19 Ciprofloxacin Hcl (CIPRO) 500 Mg Tablet, 500 MG PO Q12H for 7 Days, TAB Prov:ABDIAS CRUZ [employer] MACHINERY OPERATOR 12/05/19 Acetaminophen With Codeine (TYLENOL WITH CODEINE #3 TABLET) 1 Each Tablet, 300 MG PO Q6H PRN for PAIN, #20 TAB Prov:ABDIAS CRUZ [employer] MACHINERY OPERATOR 12/05/19 Reported Medications Diphenhydramine Hcl (BENADRYL) 25 Mg Capsule, 25 MG PO HS 12/03/19 Insulin Human Nph (HUMULIN N) 100 Units/Ml Ml, 40 UNITS SQ Q12H 12/03/19 Insulin Regular, Human (HUMULIN R) 100 Unit/1 Ml Vial Sliding Scale 12/03/19 Insulin Regular, Human (HUMULIN R) 100 Unit/1 Ml Vial, 15 UNITS SQ AC 12/03/19 Clonazepam (CLONAZEPAM) 1 Mg Tablet, 1 MG PO TID, TAB 07/10/17 Citalopram Hydrobromide (CELEXA) 40 Mg Tablet, 40 MG PO HS 03/03/17 LIZET INFANTE MD Apr 18, 2020 07:10
[2020-04-18] MEDS ORDERED: NEURONTIN100 MG PO (07:13)
[2020-04-18] MEDS ORDERED: TYLENOL # 31 EA PO (07:15)
[2020-04-18] MEDS ORDERED: HYDROCODONE/APAP 5MG-325MG TAB PO ONE (07:15)
[2020-04-18] MEDS ORDERED: HYDROCODONE/APAP 5MG-325MG TAB ONE (07:27)
== END 2020-04-18 07:25 | disposition home or self-care (01) ==
LOC: FSED 06:22
DX: B02.9 Zoster without complications (principal); E11.9 Type 2 diabetes mellitus without complications; E78.5 Hyperlipidemia, unspecified; F41.9 Anxiety disorder, unspecified; Z85.6 Personal history of leukemia; Z85.42 Personal history of malignant neoplasm of other parts of uterus; Z94.81 Bone marrow transplant status
CPT/HCPCS: 99282

== ENCOUNTER 2022-07-07 09:01 | Emergency (ER) | payer MEDICARE ==
[~2022-07-07] VITALS: Ht 157.5 cm; Wt 134.3 kg
[~2022-07-07 09:01] MED LIST changes: +NEURONTIN100 MG PO; +TYLENOL # 31 EA PO
[2022-07-07] MEDS ORDERED: BACTRIM DS TAB1 EACH PO (09:49)
[2022-07-07] MEDS ORDERED: MUPIROCIN22 GM TOP (09:49)
[2022-07-07] MEDS ORDERED: CEPHALEXIN500 MG PO (09:49)
== END 2022-07-07 10:12 | disposition home or self-care (01) ==
LOC: ER 09:08
DX: L02.828 Furuncle of other sites (principal); E11.9 Type 2 diabetes mellitus without complications; E78.5 Hyperlipidemia, unspecified; F41.9 Anxiety disorder, unspecified; G47.30 Sleep apnea, unspecified; Z85.42 Personal history of malignant neoplasm of other parts of uterus; Z85.6 Personal history of leukemia; Z98.84 Bariatric surgery status
CPT/HCPCS: 99282